=== PATIENT | female | born 1945 | race Caucasian/White ===

== ENCOUNTER 2017-06-29 20:44 | Emergency (ER) | payer MEDICAID, MEDICARE ==
[~2017-06-29] VITALS: Ht 165.1 cm; Wt 80.0 kg
[~2017-06-29 20:44] MED LIST changes: -benadryl PO
[2017-06-29 20:47] VITALS: BP 145/67; PULSE 83; RESP 18; TEMP 99.1; O2SAT 96
[2017-06-29] MEDS ORDERED: benadryl PO (20:57)
[2017-06-29 21:19] VITALS: BP 145/65; PULSE 71; RESP 18; TEMP 98.7; O2SAT 95
--- NOTE | 2017-06-29 21:33 | PD ---
HPI Chief Complaint: Abnormal Results Time Seen by Provider: 21:13 Travel History International Travel<30 days: No Contact w/Intl Traveler<30days: No Traveled to known affect area: No History of Present Illness HPI 72-year-old female with PMH of bipolar, hiatal hernia s/p failed Kiersten fundoplication, chronic back pain presents to the ED for evaluation of abnormal results. The patient states that she was scheduled to have a redo of her Kiersten today. She had preop testing and was told that the surgery was canceled because she needed cardiac clearance and had a UTI that needed to be treated. On presentation she denies chest pain, palpitations. She endorses chronic epigastric pain with intermittent nausea and vomiting and nonproductive cough for "months" which she states are symptoms of her hiatal hernia. She endorses history of chronic UTI. She endorses dysuria but denies urinary urgency, hematuria, fever, chills. She states that she just finished a 14 day course of Bactrim. She treated at home tonight with a dose of pyridium. She states that "they always gave me a shot of Rocephin in the past which worked great." She is followed by Dr. Calderon. [facility] Past Medical History Arthritis: Yes Asthma: No Autoimmune Disease: Yes (RHEUMATOID ARTHRITIS) Blood Disorders: No Bipolar Disorder: Yes Anxiety: Yes Depression: Yes Heart Rhythm Problems: Yes (HX OF CARDIAC ARRHYTHMIA) Cancer: Yes (skin ca) Cardiovascular Problems: Yes (ht murmur, pt states she has a bbb) High Cholesterol: No Chemotherapy: No Chest Pain: No Congestive Heart Failure: No COPD: No Cerebrovascular Accident: No Coronary Artery Disease: No Diabetes: No Diminished Hearing: No Endocrine: No Fibromyalgia: Yes Gastrointestinal Disorders: Yes (RECTOCELE REPAIR) GERD: No Glaucoma: No Genitourinary: Yes (RECURRENT UTI'S) Headaches: Yes (pt reports having frequent headaches) Hepatitis: Yes (hep c, was tx, pt reports she has been clear since 2016) Hiatal Hernia: Yes Hypertension: No Immune Disorder: Yes (ra, fibromyalgia) Kidney Stones: Yes (LITHOTRIPSY) Musculoskeletal: Yes (arthritis) Neurologic: Yes (neuropathy in feet and hands) Psychiatric: Yes Reproductive: No Migraines: No Myocardial Infarction: No Pancreatitis: No Radiation Therapy: No Renal Failure: No Schizophrenia: Yes (BIPOLAR D/O) Seizures: No Sickle Cell Disease: No Sleep Apnea: No Thyroid Disease: Yes (hypothyroid) Ulcer: No ?: Not Menopausal: Yes : 2 Para: 1 Miscarriage: 0 : 1 Ovarian Cysts: No Tubal Ligation: Yes Past Surgical History Abdominal Surgery: Yes (previous hernia repair, appy,liver biposy) AICD: No Appendectomy: Yes Arteriovenous Shunt: No Body Medical Devices: r/l wirst, spinal cord stimulator, hardware in back Cardiac Surgery: No Cholecystectomy: No Coronary Artery Bypass Graft: No Coronary Stent: No Ear Surgery: No Endocrine Surgery: No Eye Surgery: Yes (cataracts) Genitourinary Surgery: Yes (BLADDER SUSPENSION) Gynecologic Surgery: Yes (partial hysterectomy) Hysterectomy: Yes (partial) Insulin Pump: No Joint Replacement: Yes (r/l hip) Neurologic Surgery: Yes (level 21-s5 with ne and fusion, r/l plates and screws ) Oral Surgery: No Pacemaker: No Thoracic Surgery: No Tonsillectomy: No Tympanostomy Tube: No Other Surgery: Yes (RECTOCELE REPAIR - 1996, PARAESPHAGEAL REPAIR, LEFT WRIST) Social History Alcohol Use: No Tobacco Use: No Substance Use: No Allergies-Medications (Allergen,Severity, Reaction): Coded Allergies: Interferons (Unverified Allergy, Severe, 06/29/17) alendronate sodium (Unverified Allergy, Severe, 06/29/17) aripiprazole (Unverified Allergy, Severe, 06/29/17) atropine (Unverified Allergy, Severe, 06/29/17) azithromycin (Unverified Allergy, Severe, 06/29/17) benzoic acid (Unverified Allergy, Severe, 06/29/17) celecoxib (Unverified Allergy, Severe, 06/29/17) ciprofloxacin (Unverified Allergy, Severe, 06/29/17) codeine (Unverified Allergy, Severe, 06/29/17) dexamethasone (Unverified Allergy, Severe, 06/29/17) diatrizoate meglumine (Unverified Allergy, Severe, 06/29/17) famotidine (Unverified Allergy, Severe, 06/29/17) gadobenic acid (Unverified Allergy, Severe, 06/29/17) gadodiamide (Unverified Allergy, Severe, 06/29/17) gadoteridol (Unverified Allergy, Severe, 06/29/17) hyoscyamine (Unverified Allergy, Severe, 06/29/17) iodixanol (Unverified Allergy, Severe, 06/29/17) iohexol (Unverified Allergy, Severe, 06/29/17) lamotrigine (Unverified Allergy, Severe, 06/29/17) lansoprazole (Unverified Allergy, Severe, 06/29/17) levofloxacin (Unverified Allergy, Severe, 06/29/17) metaxalone (Unverified Allergy, Severe, 06/29/17) methenamine (Unverified Allergy, Severe, 06/29/17) methylene blue (Unverified Allergy, Severe, 06/29/17) metronidazole (Unverified Allergy, Severe, 06/29/17) nabumetone (Unverified Allergy, Severe, 06/29/17) nitrofurantoin (Unverified Allergy, Severe, 06/29/17) ofloxacin (Unverified Allergy, Severe, 06/29/17) omeprazole (Unverified Allergy, Severe, 06/29/17) oxybutynin (Unverified Allergy, Severe, 06/29/17) pantoprazole (Unverified Allergy, Severe, 06/29/17) penicillin G (Unverified Allergy, Severe, 06/29/17) prednisone (Unverified Allergy, Severe, 06/29/17) raloxifene (Unverified Allergy, Severe, 06/29/17) risedronate sodium (Unverified Allergy, Severe, 06/29/17) salicylates (Unverified Allergy, Severe, 06/29/17) sulfamethoxazole (Unverified Allergy, Severe, 06/29/17) triamcinolone (Unverified Allergy, Severe, 06/29/17) trimethoprim (Unverified Allergy, Severe, 06/29/17) valacyclovir (Unverified Allergy, Severe, 06/29/17) vancomycin (Unverified Allergy, Severe, 06/29/17) ziprasidone (Unverified Allergy, Severe, 06/29/17) acetaminophen (Unverified Adverse Reaction, Severe, HAS LIVER FAILURE, ) oxycodone (Verified Adverse Reaction, Unknown, 06/29/17) pt refusing meds with this, previous problem with addiction Uncoded Allergies: ANTIBIOTIC (Allergy, Severe, CAN TAKE KEFLEX CEFTIN ROCEPHIN, 06/18/04) ARTHROTEC (Allergy, Severe, 06/18/04) CATS (Allergy, Severe, 06/18/04) CIGARETTE SMOKE (Allergy, Severe, 06/18/04) DOGS (Allergy, Severe, 06/18/04) EXHAUST FUMES (Allergy, Severe, 06/18/04) GRASS (Allergy, Severe, 06/18/04) LEVBID (Allergy, Severe, 06/18/04) MOLDS (Allergy, Severe, 06/18/04) NEXIUM (Allergy, Severe, 06/18/04) PERFUME (Allergy, Severe, 06/18/04) PESTICIDES (Allergy, Severe, 06/18/04) TREES (Allergy, Severe, 06/18/04) WEEDS (Allergy, Severe, 06/18/04) MDRO (Adverse Reaction, Unknown, 06/29/17) ID REPORTS PREVIOUS MRSA, BLADDER Reported Meds & Prescriptions Reported Meds & Active Scripts Active Reported [benadryl] 12.5 Mg PO HS Klonopin (Clonazepam) 0.5 Mg Tab 0.25 Mg PO BID Citalopram (Citalopram Hydrobromide) 40 Mg Tab 40 Mg PO DAILY Review of Systems Except as stated in HPI: all other systems reviewed are Neg Physical Exam Narrative GENERAL: Well-nourished, well-developed white female no acute distress. SKIN: Focused skin assessment warm/dry. HEAD: Normocephalic. EYES: No scleral icterus. No injection or drainage. NECK: Supple, trachea midline. No JVD or lymphadenopathy. CARDIOVASCULAR: Regular rate and rhythm without murmurs, gallops, or rubs. RESPIRATORY: Breath sounds clear and equal bilaterally. No accessory muscle use. GASTROINTESTINAL: Abdomen soft, nondistended. Mild epigastric tenderness. No suprapubic tenderness. Active bowel sounds. MUSCULOSKELETAL: No cyanosis, or edema. BACK: Nontender without obvious deformity. No CVA tenderness. Data Data Last Documented VS Vital Signs Date Time Temp Pulse Resp B/P (MAP) Pulse Ox O2 Delivery O2 Flow Rate FiO2 06/29/17 21:19 98.7 71 18 145/65 (91) 95 Room Air Orders Orders Ed Discharge Order (06/29/17 21:41) Ceftriaxone Inj (Rocephin Inj) (06/29/17 22:00) [facility] Medical Decision Making Medical Screen Exam Complete: Yes Emergency Medical Condition: Yes Differential Diagnosis UTI versus pyelonephritis versus hiatal hernia versus other Narrative Course 72-year-old female with PMH of bipolar, hiatal hernia s/p failed Kiersten fundoplication, chronic back pain presents to the ED for evaluation after preop testing revealed a UTI. She endorses chronic epigastric pain with intermittent nausea and vomiting and nonproductive cough for "months" which she states are symptoms of her hiatal hernia. She endorses history of chronic UTI. She endorses dysuria but denies urinary urgency, hematuria, fever, chills. She states that she just finished a 14 day course of Bactrim. She treated at home tonight with a dose of pyridium. She request Rocephin. She is followed by Dr. Calderon. She states that she was also told that she'll need cardiac clearance which delayed her surgery today. Vitals reviewed. Patient afebrile on presentation. I reviewed the lab work from today which reveals hazy, nitrite positive UA with 11 wbc's. EKG rate 62, sinus rhythm with borderline LAD, RBBB , no acute ST changes. Will treat with a gram of Rocephin IM. Patient stable for follow-up with her PCP and vascular physician as directed by her surgeon today. She is agreeable with this care plan. She is stable and discharged home. Diagnosis Primary Impression: Cystitis Referrals: Primary Care Physician Patient Instructions: General Instructions, Urinary Tract Infection in Women ( ED) Additional Instructions: Rest, hydrate. Return to normal, gentle activity as tolerated. We will call you if cultures warrant any other treatment. Follow-up with your primary care provider and vascular physician as instructed by your surgeon's office today. Return to the ED for any urgent emergent medical condition. Disposition: 01 DISCHARGE HOME Condition: Stable Lexy Alvarez Jun 29, 2017 21:33
[2017-06-29] MEDS ORDERED: cefTRIAXone 250 MG VIAL IM ONE (22:00)
[2017-06-29] MEDS ORDERED: LIDOCAINE HCL 1% 50 ML VIAL XX ONE (22:15)
== END 2017-06-29 22:20 | disposition home or self-care (01) ==
LOC: NEPC 20:44
DX: N30.90 Cystitis, unspecified without hematuria (principal); R10.13 Epigastric pain; R11.2 Nausea with vomiting, unspecified; R05 Cough; F31.9 Bipolar disorder, unspecified; M06.9 Rheumatoid arthritis, unspecified; F41.9 Anxiety disorder, unspecified; M79.7 Fibromyalgia; E03.9 Hypothyroidism, unspecified
CPT/HCPCS: 99284; J0696

== ENCOUNTER → 2017-06-29 | Outpatient (CLI) | payer MEDICARE, MEDICAID ==
[~2017-06-29] MED LIST: ACYC30T TOP; CELE20TA PO; CITA40 PO; CITA40TA4 PO; CLON.5 PO; REST0.05 EACH EYE; benadryl PO
[2017-06-29 11:37] LABS: AUTOMATED NEUTROPHIL # 3.1 TH/MM3 (1.8-7.7); BASOPHIL % 0.7 % (0.0-2.0); EOSINOPHIL # 0.1 TH/MM3 (0-0.4); EOSINOPHIL % 1.3 % (0.0-4.0); HEMATOCRIT 37.3 % (35.0-46.0); HEMO FLAGS DIFF FINAL; LYMPH % 27.1 % (9.0-44.0); LYMPHOCYTE # 1.3 TH/MM3 (1.0-4.8); MEAN CELL VOLUME 87.7 FL (80.0-100.0); MEAN CORPUSCULAR HEMOGLOBIN 29.8 PG (27.0-34.0); MONO % 6.6 % (0.0-8.0); NEUT % 64.3 % (16.0-70.0); PLATELET COUNT 180 TH/MM3 (150-450); RED BLOOD COUNT 4.25 MIL/MM3 (4.00-5.30); RED CELL DISTRIBUTION WIDTH 13.2 % (11.6-17.2); WHITE BLOOD COUNT 4.8 TH/MM3 (4.0-11.0)
[2017-06-29 12:08] LABS: BICARBONATE 23.8 MEQ/L (21.0-32.0); POTASSIUM 4.1 MEQ/L (3.5-5.1)
[2017-06-29 12:15] LABS: BACTERIA, URINE MOD /hpf; BLOOD, URINE NEG (NEG); COMMENT (UR) CULTURE INDICATED; CULTURE IF INDICATED CULTURE INDICATED; GLUCOSE,URINE NEG (NEG); KETONE, URINE NEG (NEG); MUCUS URINE FEW /lpf (OCC); NITRITE,URINE POS (NEG); SQUAMOUS EPITHELIAL CELL URINE <1 /hpf (0-5); URINE COLOR YELLOW (YELLW/STRAW)
--- NOTE | 2017-06-30 11:00 | EKG ---
Date Performed: 06/29/2017 Time Performed: 11:01:04 PTAGE: 72 years EKG: Sinus rhythm WITH SHORT AR INTERVAL BORDERLINE LEFT AXIS DEVIATION RIGHT BUNDLE BRANCH BLOCK ABNORMAL ECG NO PREVIOUS TRACING DOCTOR: Krishan Obrien Interpretating Date/Time 06/30/2017 10:59:42
== END ==
LOC: CPRE 10:28
PROVIDERS: ATTEND Surgery Trauma Surgery
DX: Z01.810 Encounter for preprocedural cardiovascular examination (principal); Z01.812 Encounter for preprocedural laboratory examination; K44.9 Diaphragmatic hernia without obstruction or gangrene; R94.31 Abnormal electrocardiogram [ECG] [EKG]; R82.99 Other abnormal findings in urine; B96.20 Unspecified Escherichia coli [E. coli] as the cause of diseases classified elsewhere
CPT/HCPCS: 36415; 80048; 81001; 85025; 87077; 87086; 87186; 93005

== ENCOUNTER 2017-08-03 11:26 | Inpatient (IN) | payer MEDICARE, MEDICAID ==
[~2017-08-03] VITALS: Ht 163.8 cm; Wt 79.0 kg
[~2017-08-03 11:26] MED LIST changes: -ACYC30T TOP; -CELE20TA PO; -CITA40 PO; -REST0.05 EACH EYE; +benadryl PO
[2017-08-03] MEDS ORDERED: LIDOCAINE HCL 1% PF 5 ML SYRINGE OTHER ONE (12:00)
[2017-08-03] MEDS ORDERED: PROPOFOL 200 MG/20 ML AMP IV ONE (12:00)
[2017-08-03] MEDS ORDERED: GLYCOPYRROLATE 1 MG/5 ML SYRINGE IV PUSH ONE (12:00)
[2017-08-03] MEDS ORDERED: ONDANSETRON HCL 4 MG/2 ML VIAL IV ONE (12:00)
[2017-08-03] MEDS ORDERED: NEOSTIGMINE 5 MG/5 ML SYRINGE IV PUSH ONE (12:00)
[2017-08-03] MEDS ORDERED: ROCURONIUM INJ 50 MG/5 ML SYRINGE IV PUSH ONE (12:00)
[2017-08-03] MEDS ORDERED: ePHEDrine/NS 25 MG/5 ML SYRINGE IV ONE (12:00)
[2017-08-03] MEDS ORDERED: LACTATED RINGER'S 1000 ML INJ 1,000 ML IV ONE (12:00)
[2017-08-03] MEDS ORDERED: LABETALOL HCL 100 MG/20 ML VIAL IV ONE (12:00)
[2017-08-03] MEDS ORDERED: BUPIVACAINE/EPINEPHRINE 0.25% PF 30 ML VIAL ONE (13:04)
[2017-08-03] MEDS ORDERED: METOPROLOL TARTRATE 25 MG TAB PO PRN (13:15)
[2017-08-03] MEDS ORDERED: LACTATED RINGER'S 1000 ML IV PRN (13:15)
[2017-08-03] MEDS ORDERED: INSULIN HUMAN REGULAR 1,000 UNITS/10 ML VIAL SQ PRN (13:15)
[2017-08-03] MEDS ORDERED: SODIUM CHLORID 0.9% 500 ML IV PRN (13:15)
[2017-08-03 13:16] LABS: AUTOMATED NEUTROPHIL # 3.2 TH/MM3 (1.8-7.7); BASOPHIL % 0.6 % (0.0-2.0); EOSINOPHIL # 0.1 TH/MM3 (0-0.4); EOSINOPHIL % 1.1 % (0.0-4.0); HEMATOCRIT 36.8 % (35.0-46.0); HEMOGLOBIN 12.8 GM/DL (11.6-15.3); LYMPH % 33.3 % (9.0-44.0); LYMPHOCYTE # 1.8 TH/MM3 (1.0-4.8); MEAN CELL VOLUME 87.4 FL (80.0-100.0); MEAN CORPUSCULAR HEMOGLOBIN 30.4 PG (27.0-34.0); MEAN CORPUSCULAR HGB CONC 34.7 % (32.0-36.0); MEAN PLATELET VOLUME 8.4 FL (7.0-11.0); MONO % 7.4 % (0.0-8.0); MONOCYTE # 0.4 TH/MM3 (0-0.9); NEUT % 57.6 % (16.0-70.0); PLATELET COUNT 178 TH/MM3 (150-450); RED BLOOD COUNT 4.21 MIL/MM3 (4.00-5.30); WHITE BLOOD COUNT 5.5 TH/MM3 (4.0-11.0)
[2017-08-03] MEDS ORDERED: ceFAZolin 2 GM PREMIX 50 ML IV SCH (13:30)
[2017-08-03] MEDS ORDERED: DO NOT ADM ANY ANTICOAGULANT DRUGS PRN (15:50)
--- NOTE | 2017-08-03 15:55 | PD.OP ---
Operative Report Date of Surgery: Aug 03, 2017 Preoperative Diagnosis: Recurrent Hiatal hernia, GERD Postoperative Diagnosis: same Procedure: Lap repair recurrent hiatal hernia with Walcott BIO A mesh and redo Kiersten fundoplication Repair gastrotomy. Anesthesia: general Surgeon: Kody Crisostomo Master Motorcycle Technician(s): Janes Pelayo Operation and Findings: scar c/w redo surgery. Gastrotomy in fundoplication wrap primary closed and covered by new wrap. Full fundoplication over 48 turkmen bougie. U shaped Walcott BIO A mesh placed to reinforce primary closure of diaphragmatic crura. EBL 25 ml. Kody Crisostomo MD Aug 03, 2017 15:55
[2017-08-03] MEDS ORDERED: ENOXAPARIN SODIUM 30 MG/0.3 ML SYRINGE SQ SCH (16:00)
[2017-08-03] MEDS ORDERED: SODIUM CHLORIDE 0.9% FLUSH 10 ML FLUSH IV FLUSH PRN (16:00)
[2017-08-03] MEDS ORDERED: ONDANSETRON HCL 4 MG/2 ML VIAL IV PUSH PRN (16:00)
[2017-08-03] MEDS ORDERED: Post-op Orders (for Pharmacy) XX ONE (16:00)
[2017-08-03] MEDS ORDERED: *MEPERIDINE 25 MG INJ VIAL PERIprocedural Use ONLY ONE (16:01)
[2017-08-03] MEDS: LACTATED RINGER'S 1000 ML INJ 1,000 ML IV SCH (16:20)
[2017-08-03] MEDS ORDERED: *morphine SULFATE 8 MG/ML PERIprocedure ONLY ONE (16:23)
--- NOTE | 2017-08-03 17:25 | MP ---
cc: KERRI LOVELL M.D., MARK M.D. DATE OF SURGERY: 08/03/2017 PREOPERATIVE DIAGNOSIS Recurrent hiatal hernia, recurrent gastroesophageal reflux disease, history of prior laparoscopic Kiersten fundoplication in 2000. POSTOPERATIVE DIAGNOSES Recurrent hiatal hernia, recurrent gastroesophageal reflux disease, history of prior laparoscopic Kiersten fundoplication in 2000. Incidental gastrotomy. PROCEDURE Laparoscopic repair recurrent hiatal hernia with GORE BIO-A mesh and redo Kiersten fundoplication with repair of gastrotomy. SURGEON Dr. Kerri Lovell MUSIC INSTRUCTOR SURGEON Dr. Janes Pelayo ANESTHESIA General INDICATIONS This is a pleasant 72-year-old woman who in 2000 underwent laparoscopic Kiersten fundoplication by Dr. Alegria. She had excellent response of her reflux disease until about 2007. She developed recurrent signs and symptoms of hiatal hernia and gastroesophageal reflux disease and was referred for surgical treatment by Dr. Escalera. She was offered referral to [facility] for second opinion, surgical consultation, by declined the opportunity to be seen by a more experienced redo fundoplication surgeon. INTRAOPERATIVE FINDINGS Small to moderate size hiatal hernia with the top of stomach and fat in the mediastinum. Small gastrotomy occurred on the wrap of the patient's right side of the esophagus which was primarily repaired and imbricated in the fundoplication. ESTIMATED BLOOD LOSS 25 mL Fundoplication performed over 48-Egyptian bougie. DESCRIPTION OF PROCEDURE IN DETAIL The patient was identified as Russell Hernandez, taken to the operating room, placed in supine position. Sequential compression devices were placed on bilateral lower extremities. Following induction of adequate general endotracheal anesthesia, the patient's abdomen was prepped and draped in the usual sterile fashion with Chloraprep. A time-out procedure was performed. Following completion time-out procedure to everyone's satisfaction within the room, Marcaine local anesthetic was injected at each incision site, 6-8 cm above the umbilicus, a small vertical incision was made with scalpel and dissection continued posteriorly to the level of the midline fascia. This was incised vertically with a scalpel and entering the peritoneal cavity facilitated with the surgeon's finger. The [employer] Balloon Warren trocar was placed in the peritoneal cavity. Its balloon inflated to insufflation until a level of 15 mmHg ensued. The patient was placed in a steep reverse Trendelenburg position and four upper abdominal 5 mm trocars were placed in the peritoneal cavity under direct laparoscopic view after incision of the skin with a scalpel. The liver was noted to have fatty infiltration and chronic disease type changes. The laparoscopic Beena Flex liver retractor was placed beneath the left lateral lobe of the liver retracting it anteriorly and was held in position with the robot arm. Scar tissue was evident and scar was taken down from fatty tissue and wrapped in the stomach and esophagus. Carefully using the harmonic scalpel, blunt dissection and suction, the herniated stomach and fatty tissue was relieved from the mediastinum. The esophagus had appropriate length. The GE junction was identified and retracted inferiorly with a Beena Flex kemp's hook retractor. The previous fundoplication was loose and taken down. In doing so it was noted there was a gastrotomy on the right side of the wrap. This was approximated with four interrupted 0 Ethibond sutures using the suture logging assistant device. It appeared to have good blood supply. There was no ischemia. Sequential bougie placement was then performed using 36, 40, 44 and 48 Egyptian bougie. A 48 Egyptian bougie was passed without difficulty and left in position. A new 360 degree fundoplication was then performed using 0 Ethibond sutures, full thickness stomach, partial thickness anterior wall of the esophagus, full thickness stomach beyond the previous gastrotomy closure on the right side of the fundoplication wrap. This imbricated the previous closure. The bougie was then removed. The diaphragmatic crura were then approximated with two interrupted 0 Ethibond sutures. A piece of GORE BIO-A mesh, U-shaped, which had been moistened in saline was then customized in size and shape, and placed in a reverse C position around the esophagus, reinforcing the diaphragm repair. Two 0 Ethibond sutures were used to hold the mesh in position at the 6 o'clock and 10 o'clock positions. Evicel was then used. Fibrin sealant was then used to further adhere the mesh and to cover the fundoplication. Photographs were taken of the completed repair. Due to the gastrotomy and the redo procedure, a 10 Egyptian fluted drain was placed through the right inferolateral 5 millimeter trocar into the subhepatic space overlying the area of the surgery in the subdiaphragmatic position. The Beena Flex liver retractor was removed. The drain was sutured at the level of the skin with a 3-0 nylon drain stitch. Trocars were removed under direct visualization. The abdomen was actively desufflated through the supraumbilical port which was then removed. The fascial incision was closed with multiple interrupted 0 Vicryl sutures. Port site skin incisions were approximated with 4-0 Monocryl subcuticular sutures, and dressings were applied with Mastisol half inch brown Steri-Strips. A dry dressing was placed at the drain exit site. The patient tolerated the procedure well without apparent complication. Sponge, needle and instrument counts were correct at the end of case. MD MITCHEL Harden/LILIAN /3:37 PM /4:44 PM
[2017-08-03 17:34] VITALS: BP 111/74; PULSE 88; RESP 17; TEMP 96.8; O2SAT 98
[2017-08-03] MEDS: HYDROmorphone HCL 2 MG TAB PO PRN ×2 (18:21→22:09)
[2017-08-03] MEDS ORDERED: LORazepam 2 MG/ML VIAL IV PUSH PRN (19:15)
[2017-08-03] MEDS ORDERED: PILL SPLITTER OTHER PRN (19:30)
[2017-08-03 20:00] VITALS: BP 137/70; PULSE 112; RESP 20; TEMP 97.8; O2SAT 97
[2017-08-03 20:18] VITALS: O2SAT 93
[2017-08-03] MEDS: SODIUM CHLORIDE 0.9% FLUSH 10 ML FLUSH IV FLUSH SCH (22:10)
[2017-08-03] MEDS: diphenhydrAMINE HCL ELIXIR 12.5 MG/5 ML CUP PO SCH (23:56)
[2017-08-04] VITALS (8 sets, daily range): BP systolic 120–161; BP diastolic 58–71; PULSE 82–90; RESP 16–24; TEMP 97.4–101.3; O2SAT 91–96
[2017-08-04] MEDS: clonazePAM 0.5 MG TAB PO SCH ×3 (00:06→22:11)
[2017-08-04] MEDS: LACTATED RINGER'S 1000 ML INJ 1,000 ML IV SCH ×2 (04:16→16:04)
[2017-08-04] MEDS: HYDROmorphone HCL 2 MG TAB PO PRN ×4 (04:17→19:42)
[2017-08-04] MEDS ORDERED: RESP: ALBUTEROL 2.5 MG/3 ML NEB (PRN) INH (06:00)
[2017-08-04] MEDS ORDERED: NAPROXEN 250 MG TAB PO SCH (06:30)
--- NOTE | 2017-08-04 06:44 | RADRPT ---
EXAM DATE/TIME: 08/04/2017 05:44 [facility] COMPARISON: CHEST PA & LAT, October 09, 2009, 12:49. INDICATIONS : Post operative fever. MEDICAL HISTORY : Hiatal hernia. SURGICAL HISTORY : Hernia repair. ENCOUNTER: Initial ACUITY: 1 day PAIN SCORE: Non-responsive. LOCATION: Bilateral chest FINDINGS: Mild right lung base atelectasis and/or infiltrate is seen anteromedially. There is also minimal atel ectasis in the left midlung. Heart and mediastinum are unremarkable for technique. CONCLUSION: Mild right lung base atelectasis and/or infiltrate is seen anteromedially a mild left lung base atele ctasis. Sara Russell MD on August 04, 2017 at 6:42 Board Certified Radiologist. This report was verified electronically.
--- NOTE | 2017-08-04 07:50 | HHI.PR ---
Subjective Subjective Notes feels better, less pain. Had some nausea with popsicle, is swallowing water fine. Tolerated albuterol nebulizer, breathing more comfortably. Objective Vitals/I&O Vital Signs Date Time Temp Pulse Resp B/P (MAP) Pulse Ox O2 Delivery O2 Flow Rate FiO2 08/04/17 07:28 95 Nasal Cannula 2.00 08/04/17 05:11 82 20 127/64 (85) 08/04/17 05:02 101.3 Labs Laboratory Tests Test 08/03/17 12:50 White Blood Count 5.5 Red Blood Count 4.21 Hemoglobin 12.8 Hematocrit 36.8 Mean Corpuscular Volume 87.4 Mean Corpuscular Hemoglobin 30.4 Mean Corpuscular Hemoglobin Concent 34.7 Red Cell Distribution Width 13.0 Platelet Count 178 Mean Platelet Volume 8.4 Neutrophils (%) (Auto) 57.6 Lymphocytes (%) (Auto) 33.3 Monocytes (%) (Auto) 7.4 Eosinophils (%) (Auto) 1.1 Basophils (%) (Auto) 0.6 Neutrophils # (Auto) 3.2 Lymphocytes # (Auto) 1.8 Monocytes # (Auto) 0.4 Eosinophils # (Auto) 0.1 Basophils # (Auto) 0.0 CBC Comment DIFF FINAL Differential Comment Cardiovascular: Regular Lungs: Clear Abdomen: Non-distended, Other (incision sites clean and dry, no erythema. Drain with minimal serosanguinous drainage.), Post-op tenderness Extremities: No edema, Perfused A/P Assessment and Plan POD 1 lap repair recurrent hiatal hernia, redo ashli, repair gastrotomy in R side of wrap. Multiple allergies, postop pain, cramping. No evidence of leak on exam or in drain. Low grade fever, likely related to atelectasis. Will get gastrograffin swallow this morning to evaluate for leak. Continue OOB, deep breathe, use IS. Kody Crisostomo MD Aug 04, 2017 07:50
[2017-08-04] MEDS: SODIUM CHLORIDE 0.9% FLUSH 10 ML FLUSH IV FLUSH SCH ×2 (08:17→19:40)
[2017-08-04] MEDS: CITALOPRAM HYDROBROMIDE 40 MG TAB PO SCH (08:17)
[2017-08-04] MEDS ORDERED: NAPROXEN 375 MG TAB PO PRN (09:00)
--- NOTE | 2017-08-04 15:11 | RADRPT ---
EXAM DATE/TIME: 08/04/2017 14:44 [facility] COMPARISON: No previous studies available for comparison. INDICATIONS : Post op repair recurrent hiatal hernia / redo ashli. FLUORO TIME: 1.5 minutes IMAGE COUNT: ? CONTRAST: 1. MEDICAL HISTORY : Hiatal hernia. SURGICAL HISTORY : Hiatal hernia. ENCOUNTER: Subsequent ACUITY: 2 days PAIN SCORE: 0/10 LOCATION: Esophagus. FINDINGS: Focused evaluation of the distal esophagus and gastroesophageal junction were performed. Post surgical changes following fundoplication are noted. There is no evidence of leakage, significan t residual hiatal hernia or mucosal abnormality. A narrow patent channel is identified. CONCLUSION: Satisfactory post operative appearance of the gastroesophageal junction following fundoplication. No evidence of residual hiatal hernia, leakage or obstruction. Eliseo Wright MD on August 04, 2017 at 15:06 Board Certified Radiologist. This report was verified electronically.
[2017-08-04] MEDS: ENOXAPARIN SODIUM 30 MG/0.3 ML SYRINGE SQ SCH (15:18)
[2017-08-04] MEDS: diphenhydrAMINE HCL ELIXIR 12.5 MG/5 ML CUP PO SCH (22:09)
[2017-08-05] VITALS: BP 112/58; PULSE 86; RESP 22; TEMP 99; O2SAT 93
[2017-08-05] MEDS: HYDROmorphone HCL 2 MG TAB PO PRN ×5 (00:26→20:10)
[2017-08-05 04:00] VITALS: BP_SYST 121; BP_SYST 135; BP_DIAS 60; BP_DIAS 64; PULSE 78; PULSE 82; RESP 20; TEMP 98.5; TEMP 98.8; O2SAT 92; O2SAT 95
[2017-08-05] MEDS: LACTATED RINGER'S 1000 ML INJ 1,000 ML IV SCH ×2 (04:39→16:10)
[2017-08-05 08:00] VITALS: BP 122/60; PULSE 82; RESP 16; TEMP 97.3; O2SAT 96
[2017-08-05] MEDS: clonazePAM 0.5 MG TAB PO SCH ×2 (08:17→20:10)
[2017-08-05] MEDS: SODIUM CHLORIDE 0.9% FLUSH 10 ML FLUSH IV FLUSH SCH ×2 (08:17→20:08)
[2017-08-05] MEDS: CITALOPRAM HYDROBROMIDE 40 MG TAB PO SCH (08:17)
[2017-08-05] MEDS ORDERED: DIATRIZOATE MEGLUM/DIATRIZOATE SOD 120 ML BTL (for RAD DIAG) PO ONE (09:53)
[2017-08-05] MEDS ORDERED: DILA2TAB4 PO (14:08)
[2017-08-05] MEDS: ENOXAPARIN SODIUM 30 MG/0.3 ML SYRINGE SQ SCH (14:47)
[2017-08-05 16:00] VITALS: BP 127/59; PULSE 87; RESP 16; TEMP 98.9; O2SAT 93
[2017-08-05 20:00] VITALS: BP 138/65; PULSE 86; RESP 22; TEMP 100.3; O2SAT 95
[2017-08-05] MEDS: diphenhydrAMINE HCL ELIXIR 12.5 MG/5 ML CUP PO SCH (20:09)
[2017-08-05 23:47] VITALS: BP 134/63; PULSE 83; RESP 20; TEMP 98.8; O2SAT 95
[2017-08-06] MEDS: HYDROmorphone HCL 2 MG TAB PO PRN ×2 (00:37→05:37)
[2017-08-06] MEDS: LACTATED RINGER'S 1000 ML INJ 1,000 ML IV SCH (03:49)
[2017-08-06 08:00] VITALS: BP 121/67; PULSE 76; RESP 17; TEMP 98.2; O2SAT 98
[2017-08-06] MEDS: CITALOPRAM HYDROBROMIDE 40 MG TAB PO SCH (08:57)
[2017-08-06] MEDS: SODIUM CHLORIDE 0.9% FLUSH 10 ML FLUSH IV FLUSH SCH (08:58)
[2017-08-06] MEDS: clonazePAM 0.5 MG TAB PO SCH (08:58)
[2017-08-06 09:24] LABS: BILIRUBIN, URINE NEG (NEG); BLOOD, URINE NEG (NEG); GLUCOSE,URINE NEG (NEG); KETONE, URINE 10 mg/dL (NEG); MUCUS URINE FEW /lpf (OCC); NITRITE,URINE NEG (NEG); SQUAMOUS EPITHELIAL CELL URINE <1 /hpf (0-5); URINE COLOR YELLOW (YELLW/STRAW); URINE LEUKOCYTE ESTERASE NEG (NEG)
== END 2017-08-06 12:09 | disposition home or self-care (01) | DRG 327 ==
LOC: HSDC 11:26 → HSDI 16:21 → N07A 17:23
PROVIDERS: ADMIT Surgery Trauma Surgery; ATTEND Surgery Trauma Surgery
PROC: 0DV44ZZ Restriction of Esophagogastric Junction, Percutaneous Endoscopic Approach (ICD-10-PCS; 2017-08-03)
PROC: 0DQ64ZZ Repair Stomach, Percutaneous Endoscopic Approach (ICD-10-PCS; 2017-08-03)
PROC: 0BUT4JZ Supplement Diaphragm with Synthetic Substitute, Percutaneous Endoscopic Approach (ICD-10-PCS; principal; 2017-08-03 13:33)
DX: K44.9 Diaphragmatic hernia without obstruction or gangrene (principal); K91.71 Accidental puncture and laceration of a digestive system organ or structure during a digestive system procedure; K76.0 Fatty (change of) liver, not elsewhere classified; J98.11 Atelectasis; E66.9 Obesity, unspecified; Z68.29 Body mass index [BMI] 29.0-29.9, adult; K21.9 Gastro-esophageal reflux disease without esophagitis; E03.9 Hypothyroidism, unspecified; M54.5 Low back pain; B19.20 Unspecified viral hepatitis C without hepatic coma; Z85.828 Personal history of other malignant neoplasm of skin; F41.8 Other specified anxiety disorders
CPT/HCPCS: 71010; 74220; 81001; 85025; 94150; 94664; C1781; J0690; J1650; J2060; J2175; J2270; J2405; J2710; J7120; J7613; Q9963

== ENCOUNTER 2017-11-13 19:20 | Inpatient (IN) | payer MEDICARE, MEDICAID ==
[~2017-11-13] VITALS: Ht 162.6 cm; Wt 77.0 kg
[~2017-11-13 19:20] MED LIST changes: +DILA2TAB4 PO
[2017-11-13] MEDS ORDERED: SODIUM CHLOR 0.9% 1000 ML INJ 1,000 ML IV SCH (19:31)
--- NOTE | 2017-11-13 19:36 | PD ---
HPI Chief Complaint: Abdominal Pain Time Seen by Provider: 19:25 Travel History International Travel<30 days: No Contact w/Intl Traveler<30days: No Traveled to known affect area: No History of Present Illness HPI 72-year-old female here for evaluation of abdominal pain, abdominal hernia, and low back pain. The patient had hiatal hernia repair and revision of Kiersten fundoplication last year by Dr. Crisostomo. She subsequently developed a ventral hernia which she states is usually the size of a golf ball, however it is gradually increasing in size. She has been having constant pain in this area as well as low back pain for the last 4 days. She denies trauma. No vomiting. Last bowel movement was earlier this afternoon. She is scheduled for ventral hernia repair with Dr. Crisostomo on the of this month. She attempted to call their office today, however she was advised to present to the emergency department for evaluation. She reports that she was seen at [facility] 4 days ago for her back pain where she reportedly had a CT scan and was told that there are no acute abnormalities and was discharged home with [place] which she reports does not help her pain. No urinary or bowel incontinence or retention. No motor deficits. 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) Cancer: Yes (skin cancer) Cardiovascular Problems: Yes High Cholesterol: No Chemotherapy: No Chest Pain: No Congestive Heart Failure: No COPD: No Cerebrovascular Accident: No Coronary Artery Disease: No Diabetes: No Diminished Hearing: No Endocrine: Yes Fibromyalgia: Yes Gastrointestinal Disorders: Yes (RECTOCELE REPAIR) GERD: Yes Glaucoma: No Genitourinary: Yes Headaches: Yes (pt reports having frequent headaches) Hepatitis: Yes (hep c, was tx, pt reports she has been clear since 2016) Hiatal Hernia: Yes Hypertension: No Immune Disorder: Yes (ra, fibromyalgia) Kidney Stones: Yes Musculoskeletal: Yes Neurologic: Yes Psychiatric: Yes Reproductive: No Respiratory: Yes Migraines: No Myocardial Infarction: No Pancreatitis: No Radiation Therapy: No Renal Failure: No Schizophrenia: Yes (BIPOLAR D/O) Seizures: No Sickle Cell Disease: No Sleep Apnea: No Thyroid Disease: Yes (hypthroidism ) Ulcer: No Menopausal: Yes : 2 Para: 1 Miscarriage: 0 : 1 Ovarian Cysts: No Tubal Ligation: Yes Past Surgical History Abdominal Surgery: Yes (Hiatal hernia repair 2000) AICD: No Appendectomy: Yes Arteriovenous Shunt: No Body Medical Devices: St Rick. generator in butt Cardiac Surgery: No Cholecystectomy: No Coronary Artery Bypass Graft: No Coronary Stent: No Ear Surgery: No Endocrine Surgery: No Eye Surgery: Yes (Cataracts removed bilateral eyes) Genitourinary Surgery: Yes (Mesh around bladder) Gynecologic Surgery: Yes (Partial hysterectomy/left L ovary) Hysterectomy: Yes (partial) Insulin Pump: No Joint Replacement: Yes (bilateral hip replacements) Neurologic Surgery: Yes (level 21-s5 with ne and fusion, r/l plates and screws ) Oral Surgery: No Pacemaker: No Thoracic Surgery: No Tonsillectomy: No Tympanostomy Tube: No Other Surgery: Yes (RECTOCELE REPAIR - 1996, PARAESPHAGEAL REPAIR, LEFT WRIST) Social History Alcohol Use: No Tobacco Use: No Substance Use: Yes (marijuana) Allergies-Medications (Allergen,Severity, Reaction): Coded Allergies: Interferons (Unverified Allergy, Severe, 11/13/17) alendronate sodium (Unverified Allergy, Severe, 11/13/17) aripiprazole (Unverified Allergy, Severe, 11/13/17) atropine (Unverified Allergy, Severe, 11/13/17) azithromycin (Unverified Allergy, Severe, 11/13/17) benzoic acid (Unverified Allergy, Severe, 11/13/17) celecoxib (Unverified Allergy, Severe, 11/13/17) ciprofloxacin (Unverified Allergy, Severe, 11/13/17) codeine (Unverified Allergy, Severe, 11/13/17) dexamethasone (Unverified Allergy, Severe, 11/13/17) diatrizoate meglumine (Unverified Allergy, Severe, 11/13/17) famotidine (Unverified Allergy, Severe, 11/13/17) gadobenic acid (Unverified Allergy, Severe, 11/13/17) gadodiamide (Unverified Allergy, Severe, 11/13/17) gadoteridol (Unverified Allergy, Severe, 11/13/17) hyoscyamine (Unverified Allergy, Severe, 11/13/17) iodixanol (Unverified Allergy, Severe, 11/13/17) iohexol (Unverified Allergy, Severe, 11/13/17) lamotrigine (Unverified Allergy, Severe, 11/13/17) lansoprazole (Unverified Allergy, Severe, 11/13/17) levofloxacin (Unverified Allergy, Severe, 11/13/17) metaxalone (Unverified Allergy, Severe, 11/13/17) methenamine (Unverified Allergy, Severe, 11/13/17) methylene blue (Unverified Allergy, Severe, 11/13/17) metronidazole (Unverified Allergy, Severe, 11/13/17) nabumetone (Unverified Allergy, Severe, 11/13/17) nitrofurantoin (Unverified Allergy, Severe, 11/13/17) ofloxacin (Unverified Allergy, Severe, 11/13/17) omeprazole (Unverified Allergy, Severe, 11/13/17) oxybutynin (Unverified Allergy, Severe, 11/13/17) pantoprazole (Unverified Allergy, Severe, 11/13/17) penicillin G (Unverified Allergy, Severe, 11/13/17) prednisone (Unverified Allergy, Severe, 11/13/17) raloxifene (Unverified Allergy, Severe, 11/13/17) risedronate sodium (Unverified Allergy, Severe, 11/13/17) salicylates (Unverified Allergy, Severe, 11/13/17) sulfamethoxazole (Unverified Allergy, Severe, 11/13/17) triamcinolone (Unverified Allergy, Severe, 11/13/17) trimethoprim (Unverified Allergy, Severe, 11/13/17) valacyclovir (Unverified Allergy, Severe, 11/13/17) vancomycin (Unverified Allergy, Severe, 11/13/17) ziprasidone (Unverified Allergy, Severe, 11/13/17) acetaminophen (Unverified Adverse Reaction, Severe, HAS LIVER FAILURE, 11/13) oxycodone (Verified Adverse Reaction, Unknown, 11/13/17) pt refusing meds with this, previous problem with addiction Uncoded Allergies: ANTIBIOTIC (Allergy, Severe, CAN TAKE KEFLEX CEFTIN ROCEPHIN, 06/18/04) ARTHROTEC (Allergy, Severe, 06/18/04) CATS (Allergy, Severe, 06/18/04) CIGARETTE SMOKE (Allergy, Severe, 06/18/04) DOGS (Allergy, Severe, 06/18/04) EXHAUST FUMES (Allergy, Severe, 06/18/04) GRASS (Allergy, Severe, 06/18/04) LEVBID (Allergy, Severe, 06/18/04) MOLDS (Allergy, Severe, 06/18/04) NEXIUM (Allergy, Severe, 06/18/04) PERFUME (Allergy, Severe, 06/18/04) PESTICIDES (Allergy, Severe, 06/18/04) TREES (Allergy, Severe, 06/18/04) WEEDS (Allergy, Severe, 06/18/04) Reported Meds & Prescriptions Reported Meds & Active Scripts Active Reported [benadryl] 12.5 Mg PO HS Klonopin (Clonazepam) 0.5 Mg Tab 0.5 Mg PO BID Citalopram (Citalopram Hydrobromide) 40 Mg Tab 30 Mg PO DAILY Review of Systems Except as stated in HPI: all other systems reviewed are Neg Physical Exam Narrative GENERAL: Well-developed, well-nourished, awake, alert, comfortable, no apparent distress. SKIN: Focused skin assessment warm/dry. HEAD: Atraumatic. Normocephalic. EYES: Pupils equal and round. No scleral icterus. No injection or drainage. ENT: Mucous membranes pink and moist. NECK: Trachea midline. No JVD. CARDIOVASCULAR: Regular rate and rhythm. RESPIRATORY: No accessory muscle use. Clear to auscultation. Breath sounds equal bilaterally. GASTROINTESTINAL: Abdomen soft, nondistended. Moderate sized ventral hernia that is easily reducible with moderate tenderness, no peritoneal signs. There is mild right lower quadrant tenderness. MUSCULOSKELETAL: No obvious deformities. No clubbing. No cyanosis. No edema. Mild midline lumbar spine tenderness without step-off. NEUROLOGICAL: Awake and alert. No obvious cranial nerve deficits. Motor grossly within normal limits. Normal speech. No saddle anesthesia. Brisk patellar tendon reflexes bilaterally. Great toe extension present bilaterally. Normal muscle strength in bilateral upper and lower extremities in flexion and extension. PSYCHIATRIC: Appropriate mood and affect; insight and judgment normal. Data Data Last Documented VS Vital Signs Date Time Temp Pulse Resp B/P (MAP) Pulse Ox O2 Delivery O2 Flow Rate FiO2 11/13/17 20:19 14 98 Room Air 11/13/17 19:37 98.9 70 142/67 (92) Orders Orders Complete Blood Count With Diff (11/13/17 19:31) Comprehensive Metabolic Panel (11/13/17 19:31) Lipase (11/13/17 19:31) Lactic Acid (11/13/17 19:31) Prothrombin Time / Inr (Pt) (11/13/17 19:31) Act Partial Throm Time (Ptt) (11/13/17 19:31) Urinalysis - C+S If Indicated (11/13/17 19:31) Iv Access Insert/Monitor (11/13/17 19:31) Ecg Monitoring (11/13/17:31) Oximetry (11/13/17 19:31) Sodium Chlor 0.9% 1000 Ml Inj (Ns 1000 M (11/13/17 19:31) Sodium Chloride 0.9% Flush (Ns Flush) (11/13/17 19:45) Ct Lumb Spine W/O Contrast (11/13/17 ) Morphine Inj (Morphine Inj) (11/13/17 19:45) Ct Abd/Pel W/O Iv Contrast (11/13/17 ) Morphine Inj (Morphine Inj) (11/13/17 21:15) Insert Ng Tube (11/13/17 21:11) Admit Order (Ed Use Only) (11/13/17 21:13) Labs Laboratory Tests Test 11/13/17 19:40 White Blood Count 5.3 TH/MM3 Red Blood Count 4.30 MIL/MM3 Hemoglobin 12.8 GM/DL Hematocrit 36.3 % Mean Corpuscular Volume 84.4 FL Mean Corpuscular Hemoglobin 29.7 PG Mean Corpuscular Hemoglobin Concent 35.2 % Red Cell Distribution Width 12.4 % Platelet Count 149 TH/MM3 Mean Platelet Volume 8.5 FL Neutrophils (%) (Auto) 57.6 % Lymphocytes (%) (Auto) 32.5 % Monocytes (%) (Auto) 7.1 % Eosinophils (%) (Auto) 2.0 % Basophils (%) (Auto) 0.8 % Neutrophils # (Auto) 3.1 TH/MM3 Lymphocytes # (Auto) 1.7 TH/MM3 Monocytes # (Auto) 0.4 TH/MM3 Eosinophils # (Auto) 0.1 TH/MM3 Basophils # (Auto) 0.0 TH/MM3 CBC Comment DIFF FINAL Differential Comment Prothrombin Time 10.6 SEC Prothromb Time International Ratio 1.0 RATIO Activated Partial Thromboplast Time 23.6 SEC Blood Urea Nitrogen 21 MG/DL Creatinine 0.86 MG/DL Random Glucose 143 MG/DL Total Protein 7.7 GM/DL Albumin 4.0 GM/DL Calcium Level 8.6 MG/DL Alkaline Phosphatase 56 U/L Aspartate Amino Transf (AST/SGOT) 19 U/L Alanine Aminotransferase (ALT/SGPT) 24 U/L Total Bilirubin 0.4 MG/DL Sodium Level 138 MEQ/L Potassium Level 3.9 MEQ/L Chloride Level 105 MEQ/L Carbon Dioxide Level 24.5 MEQ/L Anion Gap 9 MEQ/L Estimat Glomerular Filtration Rate 65 ML/MIN Lactic Acid Level 2.3 mmol/L Lipase 161 U/L MDM Medical Decision Making Medical Screen Exam Complete: Yes Emergency Medical Condition: Yes Differential Diagnosis Ventral abdominal hernia: Incarcerated versus strangulated, colitis, diverticulitis, appendicitis, sciatica Narrative Course Vital signs reviewed. CBC: WBC 5.3, hemoglobin 12.8, hematocrit 36.3, platelets 149. CMP is essentially unremarkable. Lactic acid is 2.3. Lipase is 161. CT abdomen pelvis: CONCLUSION: 1. The stomach is quite distended with considerable material in the stomach. The pylorus appears narrowed suggesting a gastric bezoar and pyloric stenosis. Endoscopy would be warranted for further assessment. Malignancy is not excluded. 2. Small ventral hernia with some omental fat herniated through the defect. 3. 3 mm nonobstructing stone in the left kidney.. CT lumbar spine: CONCLUSION: 1. Grade 1 anterior spondylolisthesis of L5 on S1. The patient is status post stabilization procedure. 2. Degenerative changes throughout as described above. 3. Left renal stone. Patient was made aware of all findings. She was given 4 mg of IV morphine initially with improvement in pain, however on reassessment she states that her pain is returning. Her pain is mainly in her abdomen as well as her lower back reading down her right lower extremity. There are no red flags for low back pain. No signs of cord compression on exam. Case discussed with hospitalist Dr. Woodard who will admit the patient to her service for GI evaluation and likely general surgery evaluation. NG tube will be placed. Patient is amenable with this plan. Diagnosis Primary Impression: Gastric outlet obstruction Additional Impressions: Intractable abdominal pain Sciatica Qualified Codes: M54.31 - Sciatica, right side; M54.32 - Sciatica, left side Admitting Information Admitting Physician Requests: Toy Helton MD Nov 13, 2017 19:36
[2017-11-13 19:37] VITALS: BP 142/67; PULSE 70; RESP 16; TEMP 98.9; O2SAT 97
[2017-11-13] MEDS ORDERED: MORPHINE SULFATE 2 MG/ML SYRINGE IV PUSH ONE ×2 (19:45→21:15)
[2017-11-13] MEDS ORDERED: SODIUM CHLORIDE 0.9% FLUSH 10 ML FLUSH IV FLUSH PRN ×2 (19:45→21:30)
[2017-11-13 20:09] LABS: AUTOMATED NEUTROPHIL # 3.1 TH/MM3 (1.8-7.7); BASOPHIL % 0.8 % (0.0-2.0); EOSINOPHIL # 0.1 TH/MM3 (0-0.4); HEMATOCRIT 36.3 % (35.0-46.0); HEMOGLOBIN 12.8 GM/DL (11.6-15.3); LYMPH % 32.5 % (9.0-44.0); LYMPHOCYTE # 1.7 TH/MM3 (1.0-4.8); MEAN CELL VOLUME 84.4 FL (80.0-100.0); MEAN CORPUSCULAR HEMOGLOBIN 29.7 PG (27.0-34.0); MEAN CORPUSCULAR HGB CONC 35.2 % (32.0-36.0); MEAN PLATELET VOLUME 8.5 FL (7.0-11.0); MONO % 7.1 % (0.0-8.0); MONOCYTE # 0.4 TH/MM3 (0-0.9); NEUT % 57.6 % (16.0-70.0); PLATELET COUNT 149 TH/MM3 (150-450); RED CELL DISTRIBUTION WIDTH 12.4 % (11.6-17.2); WHITE BLOOD COUNT 5.3 TH/MM3 (4.0-11.0)
[2017-11-13 20:19] VITALS: RESP 14; O2SAT 98
--- NOTE | 2017-11-13 20:25 | RADRPT ---
EXAM DATE/TIME: 11/13/2017 19:52 [facility] COMPARISON: No previous studies available for comparison. INDICATIONS : Abdomen pain. ORAL CONTRAST: No oral contrast ingested. RADIATION DOSE: 17.31 CTDIvol (mGy) MEDICAL HISTORY : Cardiovascular disease. Hepatitis C. Cirrhosis. SURGICAL HISTORY : Appendectomy. Hysterectomy.Fusion, lumbar.Spinal stimulator ENCOUNTER: Initial ACUITY: 1 day PAIN SCALE: 7/10 LOCATION: Bilateral abdomen TECHNIQUE: Volumetric scanning of the abdomen and pelvis was performed. Using automated exposure control and ad justment of the mA and/or kV according to patient size, radiation dose was kept as low as reasonably achievable to obtain optimal diagnostic quality images. DICOM format image data is available [facility] for review and comparison. FINDINGS: Imaging through the lung bases demonstrate COPD changes. The appearance of the liver, spleen, pancreas and adrenal glands is within normal limits. Note is made of a 2 mm nonobstructing stone in the left kidney. The right kidney is unremarkable in a ppearance. Imaging through the upper abdomen demonstrates considerable undigested food within the stomach. The e xam could suggest possible gastric bezoar. The distal stomach and pylorus appear quite narrowed. This may represent some degree of pyloric stenosis. The visualized loops of small and large bowel in the upper abdomen are unremarkable. There is a small amount of stool diffusely throughout the colon. No free intraperitoneal air seen. No free intraperitoneal fluid is present. Note is made of a small v entral hernia. There is some omental fat herniated into the defect. There is no free fluid within the pelvis. No iliac or inguinal adenopathy is present. There are degenerative and postsurgical changes throughout the spine. CONCLUSION: 1. The stomach is quite distended with considerable material in the stomach. The pylorus appears narr owed suggesting a gastric bezoar and pyloric stenosis. Endoscopy would be warranted for further asses sment. Malignancy is not excluded. 2. Small ventral hernia with some omental fat herniated through the defect. 3. 3 mm nonobstructing stone in the left kidney.. Jamal Hinds MD on November 13, 2017 at 20:18 Board Certified Radiologist. This report was verified electronically.
[2017-11-13 20:35] LABS: PROTHROMBIN TIME - PATIENT 10.6 SEC (9.8-11.6)
[2017-11-13 20:38] LABS: AST (GOT) 19 U/L (15-37); BICARBONATE 24.5 MEQ/L (21.0-32.0); BLOOD UREA NITROGEN 21 MG/DL (7-18); CALCIUM 8.6 MG/DL (8.5-10.1); CHLORIDE 105 MEQ/L (98-107); CREATININE 0.86 MG/DL (0.50-1.00); GLOMERULAR FILTRATION RATE 65 ML/MIN (>89); GLUCOSE,RANDOM 143 MG/DL (74-106); SODIUM (NA) 138 MEQ/L (136-145)
[2017-11-13 20:39] LABS: ALT (GPT) 24 U/L (10-53)
[2017-11-13 20:42] LABS: ALKALINE PHOSPHATASE 56 U/L (45-117); TOTAL BILIRUBIN ADULT 0.4 MG/DL (0.2-1.0); TOTAL PROTEIN 7.7 GM/DL (6.4-8.2)
--- NOTE | 2017-11-13 20:42 | RADRPT ---
EXAM DATE/TIME: 11/13/2017 19:52 [facility] COMPARISON: CT ABDOMEN & PELVIS W/O CONTRAST, November 13, 2017, 19:52. INDICATIONS : Back pain. RADIATION DOSE: ; Reconstructed from previous dataset, no dose MEDICAL HISTORY : Cardiovascular disease. Hepatitis C. Cirrhosis. SURGICAL HISTORY : Appendectomy. Hysterectomy.Fusion, lumbar.Spinal stimulator ENCOUNTER: Initial ACUITY: 1 day PAIN SCALE: 7/10 LOCATION: lumbar TECHNIQUE: Volumetric scanning of the lumbar spine was performed. Multiplanar reconstructions in the sagittal, coronal and oblique axial planes were performed. Using automated exposure control and adjustment of the mA and/or kV according to patient size, radiation dose was kept as low as reasonably achievable t o obtain optimal diagnostic quality images. DICOM format image data is available electronically for review and comparison. FINDINGS: VERTEBRAE: There transpedicular screws through the L4, L5, S1 levels was posterior stabilization connecting rods . There are stabilization devices at the L4-L5 and L5-S1 disc levels. There is mild grade 1 anterior spondylolisthesis of L5 on S1. Lumbar vertebral bodies are otherwise normally aligned. The lumbar cyril tebral bodies are normal height. There is some sclerosis at the inferior aspect of T11 and the super ior aspect of T12 likely related to degenerative change. OTHER: There is a 6 mm stone seen in the left kidney. T11-T12: The disc demonstrates decreased height and a vacuum phenomenon. There is minimal bulging without sign ificant stenosis. T12-L1: The disc demonstrates decreased height and a vacuum phenomenon. There is mild diffuse disc bulge caus ing mild impression on the thecal sac. The neural foramina are patent bilaterally. L1-L2: The disc demonstrates decreased height and a vacuum phenomenon. There is mild diffuse disc bulge caus ing mild impression on the thecal sac. The neural foramina are patent bilaterally. L2-L3: The thecal sac has a normal diameter. There is minimal disc bulge. The neural foramina are patent b ilaterally. L3-L4: The disc demonstrates decreased height and a vacuum phenomenon. There is a right lateral recess and r ight posterior lateral disc protrusion. The neural foramina are patent bilaterally. L4-L5: The thecal sac has a normal diameter. No evidence of disc bulge or protrusion. Again noted is a sta bilization device at the disc level. The neural foramina are patent bilaterally. L5-S1: Again noted is the grade 1 anterior spondylolisthesis. The thecal sac has a normal diameter. No evid ence of disc bulge or protrusion. The neural foramina are patent bilaterally. CONCLUSION: 1. Grade 1 anterior spondylolisthesis of L5 on S1. The patient is status post stabilization procedure . 2. Degenerative changes throughout as described above. 3. Left renal stone. Dillon Mariano MD on November 13, 2017 at 20:26 Board Certified Radiologist. This report was verified electronically.
--- NOTE | 2017-11-13 21:29 | HHI.HP ---
[facility] Service [facility] Primary Care Physician No Primary Care Physician Admission Diagnosis Gastric outlet obstruction, intractable abdominal pain, sciatica Diagnoses: Travel History International Travel<30 Days: No Contact w/Intl Traveler <30 Da: No Past Family Social History Allergies: Coded Allergies: Interferons (Unverified Allergy, Severe, 11/13/17) alendronate sodium (Unverified Allergy, Severe, 11/13/17) aripiprazole (Unverified Allergy, Severe, 11/13/17) atropine (Unverified Allergy, Severe, 11/13/17) azithromycin (Unverified Allergy, Severe, 11/13/17) benzoic acid (Unverified Allergy, Severe, 11/13/17) celecoxib (Unverified Allergy, Severe, 11/13/17) ciprofloxacin (Unverified Allergy, Severe, 11/13/17) codeine (Unverified Allergy, Severe, 11/13/17) dexamethasone (Unverified Allergy, Severe, 11/13/17) diatrizoate meglumine (Unverified Allergy, Severe, 11/13/17) famotidine (Unverified Allergy, Severe, 11/13/17) gadobenic acid (Unverified Allergy, Severe, 11/13/17) gadodiamide (Unverified Allergy, Severe, 11/13/17) gadoteridol (Unverified Allergy, Severe, 11/13/17) hyoscyamine (Unverified Allergy, Severe, 11/13/17) iodixanol (Unverified Allergy, Severe, 11/13/17) iohexol (Unverified Allergy, Severe, 11/13/17) lamotrigine (Unverified Allergy, Severe, 11/13/17) lansoprazole (Unverified Allergy, Severe, 11/13/17) levofloxacin (Unverified Allergy, Severe, 11/13/17) metaxalone (Unverified Allergy, Severe, 11/13/17) methenamine (Unverified Allergy, Severe, 11/13/17) methylene blue (Unverified Allergy, Severe, 11/13/17) metronidazole (Unverified Allergy, Severe, 11/13/17) nabumetone (Unverified Allergy, Severe, 11/13/17) nitrofurantoin (Unverified Allergy, Severe, 11/13/17) ofloxacin (Unverified Allergy, Severe, 11/13/17) omeprazole (Unverified Allergy, Severe, 11/13/17) oxybutynin (Unverified Allergy, Severe, 11/13/17) pantoprazole (Unverified Allergy, Severe, 11/13/17) penicillin G (Unverified Allergy, Severe, 11/13/17) prednisone (Unverified Allergy, Severe, 11/13/17) raloxifene (Unverified Allergy, Severe, 11/13/17) risedronate sodium (Unverified Allergy, Severe, 11/13/17) salicylates (Unverified Allergy, Severe, 11/13/17) sulfamethoxazole (Unverified Allergy, Severe, 11/13/17) triamcinolone (Unverified Allergy, Severe, 11/13/17) trimethoprim (Unverified Allergy, Severe, 11/13/17) valacyclovir (Unverified Allergy, Severe, 11/13/17) vancomycin (Unverified Allergy, Severe, 11/13/17) ziprasidone (Unverified Allergy, Severe, 11/13/17) acetaminophen (Unverified Adverse Reaction, Severe, HAS LIVER FAILURE, 11/13) oxycodone (Verified Adverse Reaction, Unknown, 11/13/17) pt refusing meds with this, previous problem with addiction Uncoded Allergies: ANTIBIOTIC (Allergy, Severe, CAN TAKE KEFLEX CEFTIN ROCEPHIN, 06/18/04) ARTHROTEC (Allergy, Severe, 06/18/04) CATS (Allergy, Severe, 06/18/04) CIGARETTE SMOKE (Allergy, Severe, 06/18/04) DOGS (Allergy, Severe, 06/18/04) EXHAUST FUMES (Allergy, Severe, 06/18/04) GRASS (Allergy, Severe, 06/18/04) LEVBID (Allergy, Severe, 06/18/04) MOLDS (Allergy, Severe, 06/18/04) NEXIUM (Allergy, Severe, 06/18/04) PERFUME (Allergy, Severe, 06/18/04) PESTICIDES (Allergy, Severe, 06/18/04) TREES (Allergy, Severe, 06/18/04) WEEDS (Allergy, Severe, 06/18/04) Physical Exam Vital Signs Vital Signs Date Time Temp Pulse Resp B/P (MAP) Pulse Ox O2 Delivery O2 Flow Rate FiO2 11/13/17 20:19 14 98 Room Air 11/13/17 19:37 98.9 70 16 142/67 (92) 97 Physical Exam GENERAL: This is a well-nourished, well-developed patient, in no apparent distress. SKIN: No rashes, ecchymoses or lesions. Cool and dry. HEAD: Atraumatic. Normocephalic. No temporal or scalp tenderness. EYES: Pupils equal round and reactive. Extraocular motions intact. No scleral icterus. No injection or drainage. ENT: Nose without bleeding, purulent drainage or septal hematoma. Throat without erythema, tonsillar hypertrophy or exudate. Uvula midline. Airway patent. NECK: Trachea midline. No JVD or lymphadenopathy. Supple, nontender, no meningeal signs. CARDIOVASCULAR: Regular rate and rhythm without murmurs, gallops, or rubs. RESPIRATORY: Clear to auscultation. Breath sounds equal bilaterally. No wheezes , rales, or rhonchi. GASTROINTESTINAL: Abdomen soft, non-tender, nondistended. No hepato-splenomegaly , or palpable masses. No guarding. MUSCULOSKELETAL: Extremities without clubbing, cyanosis, or edema. No joint tenderness, effusion, or edema noted. No calf tenderness. Negative Homans sign bilaterally. NEUROLOGICAL: Awake and alert. Cranial nerves II through XII intact. Motor and sensory grossly within normal limits. Five out of 5 muscle strength in all muscle groups. Normal speech. Laboratory Laboratory Tests Test 11/13/17 19:40 White Blood Count 5.3 Red Blood Count 4.30 Hemoglobin 12.8 Hematocrit 36.3 Mean Corpuscular Volume 84.4 Mean Corpuscular Hemoglobin 29.7 Mean Corpuscular Hemoglobin Concent 35.2 Red Cell Distribution Width 12.4 Platelet Count 149 Mean Platelet Volume 8.5 Neutrophils (%) (Auto) 57.6 Lymphocytes (%) (Auto) 32.5 Monocytes (%) (Auto) 7.1 Eosinophils (%) (Auto) 2.0 Basophils (%) (Auto) 0.8 Neutrophils # (Auto) 3.1 Lymphocytes # (Auto) 1.7 Monocytes # (Auto) 0.4 Eosinophils # (Auto) 0.1 Basophils # (Auto) 0.0 CBC Comment DIFF FINAL Differential Comment Prothrombin Time 10.6 Prothromb Time International Ratio 1.0 Activated Partial Thromboplast Time 23.6 Blood Urea Nitrogen 21 Creatinine 0.86 Random Glucose 143 Total Protein 7.7 Albumin 4.0 Calcium Level 8.6 Alkaline Phosphatase 56 Aspartate Amino Transf (AST/SGOT) 19 Alanine Aminotransferase (ALT/SGPT) 24 Total Bilirubin 0.4 Sodium Level 138 Potassium Level 3.9 Chloride Level 105 Carbon Dioxide Level 24.5 Anion Gap 9 Estimat Glomerular Filtration Rate 65 Lactic Acid Level 2.3 Lipase 161 Result Diagram: 11/13/17193911/13/171939 Caprini VTE Risk Assessment Caprini Risk Assessment Model Point Value = 1 Point Value = 2 Point Value = 3 Point Value = 5 Age 41-60 Minor surgery BMI > 25 kg/m2 Swollen legs Varicose veins or History of unexplained or recurrent spontaneous Oral contraceptives or hormone replacement Sepsis (< 1 month) Serious lung disease, including pneumonia (< 1 month) Abnormal pulmonary function Acute myocardial infarction Congestive heart failure (< 1 month) History of inflammatory bowel disease Medical patient at bed rest Age 61-74 Arthroscopic surgery Major open surgery (> 45 min) Laparoscopic surgery (> 45 min) Malignancy Confined to bed (> 72 hours) Immobilizing plaster cast Central venous access Age >= 75 History of VTE Family history of VTE Factor V Leiden Prothrombin [id number] Lupus anticoagulant Anticardiolipin antibodies Elevated serum homocysteine Heparin-induced thrombocytopenia Other congenital or acquired thrombophilia Stroke (< 1 month) Elective arthroplasty Hip, pelvis, or leg fracture Acute spinal cord injury (< 1 month) Prophylaxis Regimen Total Risk Factor Score Risk Level Prophylaxis Regimen 0-1 Low Early ambulation 2 Moderate Order ONE of the following: *Sequential Compression Device (SCD) *Heparin 5000 units SQ BID 3-4 Higher Order ONE of the following medications: *Heparin 5000 units SQ TID *Enoxaparin/Lovenox 40 mg SQ daily (WT < 150 kg, CrCl > 30 mL/min) *Enoxaparin/Lovenox 30 mg SQ daily (WT < 150 kg, CrCl > 10-29 mL/min) *Enoxaparin/Lovenox 30 mg SQ BID (WT < 150 kg, CrCl > 30 mL/min) AND/OR *Sequential Compression Device (SCD) 5 or more Highest Order ONE of the following medications: *Heparin 5000 units SQ TID (Preferred with Epidurals) *Enoxaparin/Lovenox 40 mg SQ daily (WT < 150 kg, CrCl > 30 mL/min) *Enoxaparin/Lovenox 30 mg SQ daily (WT < 150 kg, CrCl > 10-29 mL/min) *Enoxaparin/Lovenox 30 mg SQ BID (WT < 150 kg, CrCl > 30 mL/min) AND *Sequential Compression Device (SCD) Tamar Santiago MD Nov 13, 2017 21:29
[2017-11-13] MEDS ORDERED: BISACODYL 10 MG SUPP RECTAL PRN (21:30)
[2017-11-13] MEDS ORDERED: SENNOSIDES 8.6 MG TAB PO PRN (21:30)
[2017-11-13] MEDS ORDERED: MAGNESIUM HYDROXIDE SUSP 30 ML CUP PO PRN (21:30)
[2017-11-13] MEDS ORDERED: LACTULOSE SYRUP 20 GM/30 ML CUP PO PRN (21:30)
[2017-11-13 21:40] VITALS: BP 157/84; PULSE 69; RESP 24; O2SAT 95
--- NOTE | 2017-11-13 22:16 | HHI.HP ---
[facility] Primary Care Physician Admission Diagnosis Gastric outlet obstruction, intractable abdominal pain, sciatica Diagnoses: (1) Gastric outlet obstruction Diagnosis: Principal (2) Pyloric stenosis Diagnosis: Principal (3) Ventral hernia Diagnosis: Principal (4) Intractable abdominal pain Diagnosis: Principal Travel History International Travel<30 Days: No Contact w/Intl Traveler <30 Da: No History of Present Illness This is a 72-year-old female with a PMH of Anxiety, Depression, Bipolar Disorder , Rheumatoid Arthritis, Fibromyalgia, Hepatitis C and GERD who presented to the ER with complaints of abdominal pain which she believes is due to ventral hernia. Has been following with Dr. Crisostomo for her hernia w/ plans for surgical intervention on November 25, however reports severe abdominal pain and worsening chronic back pain x4 days. Was prescribed Marion w/ no relief. Pain is constant, sharp, severe 10/10, worse w/ movement, associated w/ nausea no vomiting. On arrival, BP 142/67, HR 70, O2 sat 97% on RA, Afebrile. CBC unremarkable. Chemistry essentially unremarkable except for BUN 21. Lactic Acid 2.3. LFTs normal. INR 1.0. CT L-spine grade 1 anterior spondylolisthesis of L5 on S1, status post stabilization procedure, no acute findings. CT Abdomen/Pelvis stomach quite distended with considerable material in the stomach, pylorus appears narrowed suggesting gastric reservoir and pyloric stenosis, malignancy not excluded, small ventral hernia with omental fat herniated through the defect, 3 mm nonobstructing stone left kidney. S/p NGT placement in ER w/ some improvement. Review of Systems Except as stated in HPI: all other systems reviewed are Neg ROS: 14 point review of systems otherwise negative. Past Family Social History Past Medical History PMH: Anxiety, Depression, Bipolar Disorder, Rheumatoid Arthritis, Fibromyalgia , Hepatitis C and GERD Past Surgical History PAST SURGICAL HISTORY: Hiatal Hernia Repair, Bilateral Cataract Surgery, Bladder Mesh, Partial Hysterectomy, Left Oophorectomy, Bilateral Hip Replacements, Lumbar Sha and Fusion, Appendectomy, Rectocele Repair, Kiersten Fundoplication Allergies: Coded Allergies: Interferons (Unverified Allergy, Severe, 11/13/17) alendronate sodium (Unverified Allergy, Severe, 11/13/17) aripiprazole (Unverified Allergy, Severe, 11/13/17) atropine (Unverified Allergy, Severe, 11/13/17) azithromycin (Unverified Allergy, Severe, 11/13/17) benzoic acid (Unverified Allergy, Severe, 11/13/17) celecoxib (Unverified Allergy, Severe, 11/13/17) ciprofloxacin (Unverified Allergy, Severe, 11/13/17) codeine (Unverified Allergy, Severe, 11/13/17) dexamethasone (Unverified Allergy, Severe, 11/13/17) diatrizoate meglumine (Unverified Allergy, Severe, 11/13/17) famotidine (Unverified Allergy, Severe, 11/13/17) gadobenic acid (Unverified Allergy, Severe, 11/13/17) gadodiamide (Unverified Allergy, Severe, 11/13/17) gadoteridol (Unverified Allergy, Severe, 11/13/17) hyoscyamine (Unverified Allergy, Severe, 11/13/17) iodixanol (Unverified Allergy, Severe, 11/13/17) iohexol (Unverified Allergy, Severe, 11/13/17) lamotrigine (Unverified Allergy, Severe, 11/13/17) lansoprazole (Unverified Allergy, Severe, 11/13/17) levofloxacin (Unverified Allergy, Severe, 11/13/17) metaxalone (Unverified Allergy, Severe, 11/13/17) methenamine (Unverified Allergy, Severe, 11/13/17) methylene blue (Unverified Allergy, Severe, 11/13/17) metronidazole (Unverified Allergy, Severe, 11/13/17) nabumetone (Unverified Allergy, Severe, 11/13/17) nitrofurantoin (Unverified Allergy, Severe, 11/13/17) ofloxacin (Unverified Allergy, Severe, 11/13/17) omeprazole (Unverified Allergy, Severe, 11/13/17) oxybutynin (Unverified Allergy, Severe, 11/13/17) pantoprazole (Unverified Allergy, Severe, 11/13/17) penicillin G (Unverified Allergy, Severe, 11/13/17) prednisone (Unverified Allergy, Severe, 11/13/17) raloxifene (Unverified Allergy, Severe, 11/13/17) risedronate sodium (Unverified Allergy, Severe, 11/13/17) salicylates (Unverified Allergy, Severe, 11/13/17) sulfamethoxazole (Unverified Allergy, Severe, 11/13/17) triamcinolone (Unverified Allergy, Severe, 11/13/17) trimethoprim (Unverified Allergy, Severe, 11/13/17) valacyclovir (Unverified Allergy, Severe, 11/13/17) vancomycin (Unverified Allergy, Severe, 11/13/17) ziprasidone (Unverified Allergy, Severe, 11/13/17) acetaminophen (Unverified Adverse Reaction, Severe, HAS LIVER FAILURE, 11/13) oxycodone (Verified Adverse Reaction, Unknown, 11/13/17) pt refusing meds with this, previous problem with addiction Uncoded Allergies: ANTIBIOTIC (Allergy, Severe, CAN TAKE KEFLEX CEFTIN ROCEPHIN, 06/18/04) ARTHROTEC (Allergy, Severe, 06/18/04) CATS (Allergy, Severe, 06/18/04) CIGARETTE SMOKE (Allergy, Severe, 06/18/04) DOGS (Allergy, Severe, 06/18/04) EXHAUST FUMES (Allergy, Severe, 06/18/04) GRASS (Allergy, Severe, 06/18/04) LEVBID (Allergy, Severe, 06/18/04) MOLDS (Allergy, Severe, 06/18/04) NEXIUM (Allergy, Severe, 06/18/04) PERFUME (Allergy, Severe, 06/18/04) PESTICIDES (Allergy, Severe, 06/18/04) TREES (Allergy, Severe, 06/18/04) WEEDS (Allergy, Severe, 06/18/04) Family History PAST FAMILY HISTORY: Reviewed. No h/o DM or CAD Social History PAST SOCIAL HISTORY: Negative for alcohol or tobacco. Positive for Marijuana per Physical Exam Vital Signs Vital Signs Date Time Temp Pulse Resp B/P (MAP) Pulse Ox O2 Delivery O2 Flow Rate FiO2 11/13/17 21:40 69 24 157/84 (108) 95 Room Air 11/13/17 21:32 16 11/13/17 20:19 14 98 Room Air 11/13/17 19:37 98.9 70 16 142/67 (92) 97 Physical Exam PE: GENERAL: Pleasant middle-aged white female in no acute distress. NGT in place to suction. HEENT: PERRLA, EOMI. No scleral icterus or conjunctival pallor. No lid lag or facial droop. CARDIOVASCULAR: Regular rate and rhythm. No obvious murmurs to auscultation. No chest tenderness to palpation. RESPIRATORY: No obvious rhonchi or wheezing. Clear to auscultation. Breath sounds equal bilaterally. GASTROINTESTINAL: Abdomen soft, distended, generalized tenderness to palpation. BS normal. +ventral hernia, reducible. MUSCULOSKELETAL: Extremities without clubbing, cyanosis, or edema. No obvious deformities. NEUROLOGICAL: Awake, alert and oriented x4. No focal neurologic deficits. Moving both upper and lower extremities spontaneously. Laboratory Laboratory Tests Test 11/13/17 19:40 White Blood Count 5.3 Red Blood Count 4.30 Hemoglobin 12.8 Hematocrit 36.3 Mean Corpuscular Volume 84.4 Mean Corpuscular Hemoglobin 29.7 Mean Corpuscular Hemoglobin Concent 35.2 Red Cell Distribution Width 12.4 Platelet Count 149 Mean Platelet Volume 8.5 Neutrophils (%) (Auto) 57.6 Lymphocytes (%) (Auto) 32.5 Monocytes (%) (Auto) 7.1 Eosinophils (%) (Auto) 2.0 Basophils (%) (Auto) 0.8 Neutrophils # (Auto) 3.1 Lymphocytes # (Auto) 1.7 Monocytes # (Auto) 0.4 Eosinophils # (Auto) 0.1 Basophils # (Auto) 0.0 CBC Comment DIFF FINAL Differential Comment Prothrombin Time 10.6 Prothromb Time International Ratio 1.0 Activated Partial Thromboplast Time 23.6 Blood Urea Nitrogen 21 Creatinine 0.86 Random Glucose 143 Total Protein 7.7 Albumin 4.0 Calcium Level 8.6 Alkaline Phosphatase 56 Aspartate Amino Transf (AST/SGOT) 19 Alanine Aminotransferase (ALT/SGPT) 24 Total Bilirubin 0.4 Sodium Level 138 Potassium Level 3.9 Chloride Level 105 Carbon Dioxide Level 24.5 Anion Gap 9 Estimat Glomerular Filtration Rate 65 Lactic Acid Level 2.3 Lipase 161 Result Diagram: 11/13/17193911/13/171939 Caprini VTE Risk Assessment Caprini VTE Risk Assessment: No/Low Risk (score <= 1) Caprini Risk Assessment Model Point Value = 1 Point Value = 2 Point Value = 3 Point Value = 5 Age 41-60 Minor surgery BMI > 25 kg/m2 Swollen legs Varicose veins or History of unexplained or recurrent spontaneous Oral contraceptives or hormone replacement Sepsis (< 1 month) Serious lung disease, including pneumonia (< 1 month) Abnormal pulmonary function Acute myocardial infarction Congestive heart failure (< 1 month) History of inflammatory bowel disease Medical patient at bed rest Age 61-74 Arthroscopic surgery Major open surgery (> 45 min) Laparoscopic surgery (> 45 min) Malignancy Confined to bed (> 72 hours) Immobilizing plaster cast Central venous access Age >= 75 History of VTE Family history of VTE Factor V Leiden Prothrombin [id number] Lupus anticoagulant Anticardiolipin antibodies Elevated serum homocysteine Heparin-induced thrombocytopenia Other congenital or acquired thrombophilia Stroke (< 1 month) Elective arthroplasty Hip, pelvis, or leg fracture Acute spinal cord injury (< 1 month) Prophylaxis Regimen Total Risk Factor Score Risk Level Prophylaxis Regimen 0-1 Low Early ambulation 2 Moderate Order ONE of the following: *Sequential Compression Device (SCD) *Heparin 5000 units SQ BID 3-4 Higher Order ONE of the following medications: *Heparin 5000 units SQ TID *Enoxaparin/Lovenox 40 mg SQ daily (WT < 150 kg, CrCl > 30 mL/min) *Enoxaparin/Lovenox 30 mg SQ daily (WT < 150 kg, CrCl > 10-29 mL/min) *Enoxaparin/Lovenox 30 mg SQ BID (WT < 150 kg, CrCl > 30 mL/min) AND/OR *Sequential Compression Device (SCD) 5 or more Highest Order ONE of the following medications: *Heparin 5000 units SQ TID (Preferred with Epidurals) *Enoxaparin/Lovenox 40 mg SQ daily (WT < 150 kg, CrCl > 30 mL/min) *Enoxaparin/Lovenox 30 mg SQ daily (WT < 150 kg, CrCl > 10-29 mL/min) *Enoxaparin/Lovenox 30 mg SQ BID (WT < 150 kg, CrCl > 30 mL/min) AND *Sequential Compression Device (SCD) Assessment and Plan Problem List: (1) Gastric outlet obstruction ICD Code: K31.1 - Adult hypertrophic pyloric stenosis Status: Acute (2) Pyloric stenosis ICD Code: K31.1 - Adult hypertrophic pyloric stenosis (3) Ventral hernia ICD Code: K43.9 - Ventral hernia without obstruction or gangrene (4) Intractable abdominal pain ICD Code: R10.9 - Unspecified abdominal pain Status: Acute Assessment and Plan A/P: 1. Gastric Outlet Obstruction: secondary to pyloric stenosis and gastric bezoar, CT Abd/Pelvis w/ significant distention of stomach, images reviewed by me. S/p NGT in ER, continue suction, NPO, IVF for hydration. 2. Pyloric Stenosis: seen on CT Abd/Pelvisl, previous Kiersten Fundoplication, will consult GI for further evaluation/intervention. 3. Ventral Hernia: Follows w/ Dr. Crisostomo, scheduled for surgery 11/25/17, however reports hernia larger and more painful. CT Abd/Pelvis w/ small ventral hernia w/ some omental fat herniated through defect, no obstruction, images reviewed. NPO, IVF, Consult Dr. Crisostomo for further eval. 4. Intractable Abd Pain: given Marion as outpatient w/ minimal relief, s/p Morphine in ER w/ significant improvement, will continue analgesics/antiemetics as needed. 5. DVT Prophylaxis: SCD/Teds. 6. Social work for d/c planning as needed. 7. Case discussed w/ ER physician at length, labs/records/imaging reviewed by me. Physician Certification 2 Midnight Certification Type: Admission for Inpatient Services Order for Inpatient Services The services are ordered in accordance with Medicare regulations or non- Medicare payer requirements, as applicable. In the case of services not specified as inpatient-only, they are appropriately provided as inpatient services in accordance with the 2-midnight benchmark. Estimated LOS (days): 2 days is the estimated time the patient will need to remain in the hospital, assuming treatment plan goals are met and no additional complications. Post-Hospital Plan: Not yet determined Tamar Santiago MD Nov 13, 2017 22:16
--- NOTE | 2017-11-13 22:20 | RADRPT ---
EXAM DATE/TIME: 11/13/2017 21:44 [facility] COMPARISON: No previous studies available for comparison. INDICATIONS : NG tube placement. MEDICAL HISTORY : Cardiovascular disease. Hepatitis C. Cirrhosis. SURGICAL HISTORY : Appendectomy. Hysterectomy.Fusion, lumbar.Spinal stimulator. ENCOUNTER: Initial ACUITY: 1 day PAIN SCORE: 0/10 LOCATION: Abdomen. FINDINGS: There is NG tube with its tip in the distal esophagus. There is a spinal stimulator seen in the left upper pelvic region with lead directed superiorly towards the thoracic spine. Transpedicular screws a re seen in the lower lumbar spine and upper sacrum. Bilateral hip prostheses are present. CONCLUSION: NG tube in the distal esophagus. Dillon Mariano MD on November 13, 2017 at 22:16 Board Certified Radiologist. This report was verified electronically.
[2017-11-13] MEDS: SODIUM CHLOR 0.9% 1000 ML INJ 1,000 ML IV SCH (22:52)
[2017-11-13] MEDS: METOCLOPRAMIDE HCL 10 MG/2 ML VIAL IV PUSH SCH (22:53)
[2017-11-14 00:11] VITALS: BP 169/69; PULSE 66; RESP 18; TEMP 98.4; O2SAT 95
[2017-11-14 01:02] LABS: HEMATOCRIT 33.7 % (35.0-46.0); HEMOGLOBIN 11.8 GM/DL (11.6-15.3)
[2017-11-14] MEDS: MORPHINE SULFATE 2 MG/ML SYRINGE IV PUSH PRN ×6 (01:52→20:36)
[2017-11-14] MEDS ORDERED: LACTATED RINGER'S 1000 ML IV PRN (03:45)
[2017-11-14] MEDS ORDERED: SODIUM CHLORID 0.9% 500 ML IV PRN (03:45)
[2017-11-14] MEDS: METOCLOPRAMIDE HCL 10 MG/2 ML VIAL IV PUSH SCH ×3 (05:05→20:35)
[2017-11-14 07:04] LABS: BASOPHIL % 0.5 % (0.0-2.0); EOSINOPHIL # 0.1 TH/MM3 (0-0.4); EOSINOPHIL % 1.9 % (0.0-4.0); HEMATOCRIT 36.1 % (35.0-46.0); HEMOGLOBIN 12.4 GM/DL (11.6-15.3); LYMPHOCYTE # 1.4 TH/MM3 (1.0-4.8); MEAN CELL VOLUME 85.3 FL (80.0-100.0); MEAN CORPUSCULAR HEMOGLOBIN 29.2 PG (27.0-34.0); MEAN CORPUSCULAR HGB CONC 34.3 % (32.0-36.0); MEAN PLATELET VOLUME 8.2 FL (7.0-11.0); MONO % 7.4 % (0.0-8.0); MONOCYTE # 0.4 TH/MM3 (0-0.9); NEUT % 61.2 % (16.0-70.0); PLATELET COUNT 129 TH/MM3 (150-450); RED BLOOD COUNT 4.23 MIL/MM3 (4.00-5.30); RED CELL DISTRIBUTION WIDTH 12.9 % (11.6-17.2); WHITE BLOOD COUNT 4.9 TH/MM3 (4.0-11.0)
[2017-11-14] MEDS: SODIUM CHLOR 0.9% 1000 ML INJ 1,000 ML IV SCH ×2 (07:25→15:54)
[2017-11-14 07:44] LABS: ALBUMIN 3.7 GM/DL (3.4-5.0); AST (GOT) 16 U/L (15-37); BICARBONATE 25.2 MEQ/L (21.0-32.0); BLOOD UREA NITROGEN 15 MG/DL (7-18); CALCIUM 7.9 MG/DL (8.5-10.1); CHLORIDE 107 MEQ/L (98-107); CREATININE 0.62 MG/DL (0.50-1.00); GLOMERULAR FILTRATION RATE 95 ML/MIN (>89); GLUCOSE,RANDOM 154 MG/DL (74-106); SODIUM (NA) 140 MEQ/L (136-145)
[2017-11-14 07:46] LABS: ALT (GPT) 21 U/L (10-53)
[2017-11-14 07:48] LABS: ALKALINE PHOSPHATASE 52 U/L (45-117); TOTAL BILIRUBIN ADULT 0.7 MG/DL (0.2-1.0)
[2017-11-14 08:00] VITALS: BP 149/67; PULSE 64; RESP 18; TEMP 98.5; O2SAT 92
[2017-11-14] MEDS: SODIUM CHLORIDE 0.9% FLUSH 10 ML FLUSH IV FLUSH SCH ×2 (08:03→20:34)
[2017-11-14] MEDS: DOCUSATE SODIUM 50 MG/SENNA 8.6 MG TAB PO SCH ×2 (08:03→20:35)
--- NOTE | 2017-11-14 08:05 | RADRPT ---
EXAM DATE/TIME: 11/14/2017 07:38 [facility] COMPARISON: CT ABDOMEN & PELVIS W/O CONTRAST, November 13, 2017, 19:52. CHEST SINGLE AP, August 04, 2017, 5:44. INDICATIONS : Check placement of NG tube. MEDICAL HISTORY : Cardiovascular disease. Hepatitis C. Cirrhosis. SURGICAL HISTORY : Appendectomy. Hysterectomy.Fusion, lumbar.Spinal stimulator. ENCOUNTER: Subsequent ACUITY: 1 day PAIN SCORE: 0/10 LOCATION: Bilateral chest FINDINGS: 2 AP upright portable views of the chest are obtained. There is a nasogastric tube with the proximal port overlying the region of the stomach the level of the gastroesophageal junction. There is a neuro stimulator overlying the lower thoracic spine. The lungs are well-inflated and clear. Heart size is n ormal. Pulmonary vasculature is normal. Osseous structures are grossly unremarkable. CONCLUSION: Nasogastric tube with proximal port the level of the gastroesophageal junction. No evidence of acute cardiopulmonary disease. Lyssa Tate MD on November 14, 2017 at 8:00 Board Certified Radiologist. This report was verified electronically.
--- NOTE | 2017-11-14 09:22 | HHI.PR ---
Subjective Remarks This is a 72-year-old female with a PMH of Anxiety, Depression, Bipolar Disorder , Rheumatoid Arthritis, Fibromyalgia, Hepatitis C and GERD who presented to the ER with complaints of abdominal pain which she believes is due to ventral hernia. Has been following with Dr. Crisostomo for her hernia w/ plans for surgical intervention on November 25, however reports severe abdominal pain and worsening chronic back pain x4 days. Was prescribed [place] w/ no relief. Pain is constant, sharp, severe 10/10, worse w/ movement, associated w/ nausea no vomiting. On arrival, BP 142/67, HR 70, O2 sat 97% on RA, Afebrile. CBC unremarkable. Chemistry essentially unremarkable except for BUN 21. Lactic Acid 2.3. LFTs normal. INR 1.0. CT L-spine grade 1 anterior spondylolisthesis of L5 on S1, status post stabilization procedure, no acute findings. CT Abdomen/Pelvis stomach quite distended with considerable material in the stomach, pylorus appears narrowed suggesting gastric reservoir and pyloric stenosis, malignancy not excluded, small ventral hernia with omental fat herniated through the defect, 3 mm nonobstructing stone left kidney. S/p NGT placement in ER w/ some improvement. 11/14: Stable in her bedroom, seen by GI specialist at this time and discussed with Doctor Briana Haile, with Diagnosis of Gastric Outlet obstruction, Pyloric stenosis history of Hepatitis C, suspected Gastroparesis, history of Hiatal hernia repair, Planning for EGD with dilation for tomorrow, PPI, NG tube for now and awaiting for General Surgery consult. Objective Vital Signs Date Time Temp Pulse Resp B/P (MAP) Pulse Ox O2 Delivery O2 Flow Rate FiO2 11/14/17 05:10 18 11/14/17 02:05 18 11/14/17 00:11 98.4 66 18 169/69 (102) 95 11/13/17 21:40 69 24 157/84 (108) 95 Room Air 11/13/17 21:32 16 11/13/17 20:19 14 98 Room Air 11/13/17 19:37 98.9 70 16 142/67 (92) 97 I/O 11/13/17 11/13/17 11/13/17 11/14/17 11/14/17 11/14/17 07:00 15:00 23:00 07:00 15:00 23:00 Intake Total 0 ml Output Total 125 ml Balance -125 ml Intake Oral 0 ml Output Gastric Drainage Total 125 ml # Voids 1 Result Diagram: 11/14/1723 11/14/1723 Imaging Last Impressions Chest X-Ray 11/14/17 0000 Signed Impressions: Service Date/Time: Tuesday, November 14, 2017 07:38 - CONCLUSION: Nasogastric tube with proximal port the level of the gastroesophageal junction. No evidence of acute cardiopulmonary disease. Lyssa Tate MD Lumbar Spine CT 11/13/17 0000 Signed Impressions: Service Date/Time: Monday, November 13, 2017 19:52 - CONCLUSION: 1. Grade 1 anterior spondylolisthesis of L5 on S1. The patient is status post stabilization procedure. 2. Degenerative changes throughout as described above. 3. Left renal stone. Dillon Mariano MD Abdomen/Pelvis CT 11/13/17 0000 Signed Impressions: Service Date/Time: Monday, November 13, 2017 19:52 - CONCLUSION: 1. The stomach is quite distended with considerable material in the stomach. The pylorus appears narrowed suggesting a gastric bezoar and pyloric stenosis. Endoscopy would be warranted for further assessment. Malignancy is not excluded. 2. Small ventral hernia with some omental fat herniated through the defect. 3. 3 mm nonobstructing stone in the left kidney.. Jamal Hinds MD Abdomen X-Ray 11/13/17 0000 Signed Impressions: Service Date/Time: Monday, November 13, 2017 21:44 - CONCLUSION: NG tube in the distal esophagus. Dillon Mariano MD Procedures NG tube at slow suction. Other Results Laboratory Tests Test 11/13/17 19:40 11/14/17 06:23 Prothrombin Time 10.6 SEC Prothromb Time International Ratio 1.0 RATIO Activated Partial Thromboplast Time 23.6 SEC Lactic Acid Level 2.3 mmol/L Lipase 161 U/L White Blood Count 4.9 TH/MM3 Red Blood Count 4.23 MIL/MM3 Hemoglobin 12.4 GM/DL Hematocrit 36.1 % Mean Corpuscular Volume 85.3 FL Mean Corpuscular Hemoglobin 29.2 PG Mean Corpuscular Hemoglobin Concent 34.3 % Red Cell Distribution Width 12.9 % Platelet Count 129 TH/MM3 Mean Platelet Volume 8.2 FL Neutrophils (%) (Auto) 61.2 % Lymphocytes (%) (Auto) 29.0 % Monocytes (%) (Auto) 7.4 % Eosinophils (%) (Auto) 1.9 % Basophils (%) (Auto) 0.5 % Neutrophils # (Auto) 3.0 TH/MM3 Lymphocytes # (Auto) 1.4 TH/MM3 Monocytes # (Auto) 0.4 TH/MM3 Eosinophils # (Auto) 0.1 TH/MM3 Basophils # (Auto) 0.0 TH/MM3 CBC Comment DIFF FINAL Differential Comment Blood Urea Nitrogen 15 MG/DL Creatinine 0.62 MG/DL Random Glucose 154 MG/DL Total Protein 7.0 GM/DL Albumin 3.7 GM/DL Calcium Level 7.9 MG/DL Alkaline Phosphatase 52 U/L Aspartate Amino Transf (AST/SGOT) 16 U/L Alanine Aminotransferase (ALT/SGPT) 21 U/L Total Bilirubin 0.7 MG/DL Sodium Level 140 MEQ/L Potassium Level 3.9 MEQ/L Chloride Level 107 MEQ/L Carbon Dioxide Level 25.2 MEQ/L Anion Gap 8 MEQ/L Estimat Glomerular Filtration Rate 95 ML/MIN Objective Remarks GENERAL: No acute distress. NGT in place to suction. HEENT: PERRLA, EOMI. No scleral icterus or conjunctival pallor. No lid lag or facial droop. CARDIOVASCULAR: Regular rate and rhythm. No obvious murmurs to auscultation. No chest tenderness to palpation. RESPIRATORY: No obvious rhonchi or wheezing. Clear to auscultation. Breath sounds equal bilaterally. GASTROINTESTINAL: Abdomen soft, distended, generalized tenderness to palpation. BS normal. +ventral hernia non reducible at this time. MUSCULOSKELETAL: Extremities without clubbing, cyanosis, or edema. No obvious deformities. NEUROLOGICAL: Awake, alert and oriented x4. No focal neurologic deficits. Moving both upper and lower extremities spontaneously. Medications and IVs Current Medications Medications (Trade) Dose Ordered Sig/Gabriel Route Start Time Stop Time Status Last Admin (Ativan Inj) 1 mg Q4H PRN IV PUSH 11/13/17 21:30 (Reglan Inj) 10 mg Q8HR IV PUSH 11/13/17 22:00 11/14/17 05:05 Sodium Chloride 1,000 ml @ 100 mls/hr Q10H IV 11/13/17 21:25 11/13/17 22:52 (NS Flush) 2 ml UNSCH PRN IV FLUSH 11/13/17 21:30 (NS Flush) 2 ml BID IV FLUSH 11/14/17 09:00 (Zofran Inj) 4 mg Q6H PRN IVP 11/13/17 21:30 (Morphine Inj) 1 mg Q3H PRN IV PUSH 11/13/17 21:30 11/14/17 08:51 (Morphine Inj) 2 mg Q3H PRN IV PUSH 11/13/17 21:30 11/14/17 01:52 (Patricia-Colace) 1 tab BID PO 11/14/17 09:00 (Milk Of Magnesia Liq) 30 ml Q12H PRN PO 11/13/17 21:30 (Senokot) 17.2 mg Q12H PRN PO 11/13/17 21:30 (Dulcolax Supp) 10 mg DAILY PRN RECTAL 11/13/17 21:30 (Lactulose Liq) 30 ml DAILY PRN PO 11/13/17 21:30 Lactated Ringer's 1,000 ml @ 30 mls/hr Q24H PRN IV 11/14/17 03:45 11/17/17 03:44 Sodium Chloride 500 ml @ 30 mls/hr [id number] PRN IV 11/14/17 03:45 11/17/17 03:44 A/P Assessment and Plan (1) Gastric outlet obstruction ICD Code: K31.1 - Adult hypertrophic pyloric stenosis Status: Acute (2) Pyloric stenosis ICD Code: K31.1 - Adult hypertrophic pyloric stenosis (3) Ventral hernia ICD Code: K43.9 - Ventral hernia without obstruction or gangrene (4) Intractable abdominal pain ICD Code: R10.9 - Unspecified abdominal pain Status: Acute 1. Gastric Outlet Obstruction: secondary to pyloric stenosis and gastric bezoar, CT Abd/Pelvis w/ significant distention of stomach, images reviewed by me. S/p NGT in ER, continue suction, NPO, IVF for hydration. Seen by GI specialist at this time and discussed with Doctor Briana Haile, with Diagnosis of Gastric Outlet obstruction, Pyloric stenosis history of Hepatitis C, suspected Gastroparesis, history of Hiatal hernia repair, Planning for EGD with dilation for tomorrow, PPI, NG tube for now and awaiting for General Surgery consult. 2. Pyloric Stenosis: seen on CT Abd/Pelvisl, previous Kiersten Fundoplication. 3. Ventral Hernia: Follows w/ Dr. Crisostomo, scheduled for surgery 11/25/17, however reports hernia larger and more painful. CT Abd/Pelvis w/ small ventral hernia w/ some omental fat herniated through defect, no obstruction, images reviewed. NPO, IVF, Consult Dr. Crisostomo for further eval. 4. Intractable Abd Pain: given [place] as outpatient w/ minimal relief, s/p Morphine in ER w/ significant improvement, will continue analgesics/antiemetics as needed. DVT Prophylaxis: SCD/Teds. Discharge Planning once cleared by Specialists. Edward Avila MD Nov 14, 2017 09:22
--- NOTE | 2017-11-14 11:14 | PD.CONS ---
HPI History of Present Illness This is a 72 year old female who was admitted on 11/13/17 with symptoms of abdominal pain. Patient had recent hernia repair surgery with Dr. cheryl jordan back in July. Since that surgery patient has noted some sciatica-type low back pain, as well as dysphasia. Patient did note dysphasia after surgery but states that it got better up until the past couple of days. She was able to eat regular food yesterday a.m. before admission, but did choke on water and sometimes her medications. Patient also notes that she cut out of the shower yesterday a.m. became very diaphoretic and thought she was, pass out but did not. She denied any nausea or vomiting with her diaphoresis. Patient on notes some mild constipation which she has attempted to control with [id number] medicines since July 2017. She has been a patient of Dr. Curiel in the past and has had previous EGDs and colonoscopies 2014 and possibly later. Patient is a fair to poor historian on her history. Patient does note some mild bloating, and abdominal tenderness at the site of her previous surgical incision mid abdomen which could possibly be a hernia she has a history of hepatitis C and has been treated with her family back in 2015. 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 [employer] and thinks that she may have required her hepatitis C then. She does note history of GERD and reflux which has been a chronic symptom for her. Current CT scan shows stomach to be quite distended. The pylorus appears narrowed suggesting a gastric bezoar and pyloric stenosis. Malignancy cannot be excluded. Small ventral hernia noted. (Lisa Hoffmann) PFSH Past Medical History PMH: Anxiety, Depression, Bipolar Disorder, Rheumatoid Arthritis, Fibromyalgia , Hepatitis C and GERD Past Surgical History PAST SURGICAL HISTORY: Hiatal Hernia Repair, Bilateral Cataract Surgery, Bladder Mesh, Partial Hysterectomy, Left Oophorectomy, Bilateral Hip Replacements, Lumbar Sha and Fusion, Appendectomy, Rectocele Repair, Kiersten Fundoplication (Lisa Hoffmann) Coded Allergies: Interferons (Unverified Allergy, Severe, 11/13/17) alendronate sodium (Unverified Allergy, Severe, 11/13/17) aripiprazole (Unverified Allergy, Severe, 11/13/17) atropine (Unverified Allergy, Severe, 11/13/17) azithromycin (Unverified Allergy, Severe, 11/13/17) benzoic acid (Unverified Allergy, Severe, 11/13/17) celecoxib (Unverified Allergy, Severe, 11/13/17) ciprofloxacin (Unverified Allergy, Severe, 11/13/17) codeine (Unverified Allergy, Severe, 11/13/17) dexamethasone (Unverified Allergy, Severe, 11/13/17) diatrizoate meglumine (Unverified Allergy, Severe, 11/13/17) famotidine (Unverified Allergy, Severe, 11/13/17) gadobenic acid (Unverified Allergy, Severe, 11/13/17) gadodiamide (Unverified Allergy, Severe, 11/13/17) gadoteridol (Unverified Allergy, Severe, 11/13/17) hyoscyamine (Unverified Allergy, Severe, 11/13/17) iodixanol (Unverified Allergy, Severe, 11/13/17) iohexol (Unverified Allergy, Severe, 11/13/17) lamotrigine (Unverified Allergy, Severe, 11/13/17) lansoprazole (Unverified Allergy, Severe, 11/13/17) levofloxacin (Unverified Allergy, Severe, 11/13/17) metaxalone (Unverified Allergy, Severe, 11/13/17) methenamine (Unverified Allergy, Severe, 11/13/17) methylene blue (Unverified Allergy, Severe, 11/13/17) metronidazole (Unverified Allergy, Severe, 11/13/17) nabumetone (Unverified Allergy, Severe, 11/13/17) nitrofurantoin (Unverified Allergy, Severe, 11/13/17) ofloxacin (Unverified Allergy, Severe, 11/13/17) omeprazole (Unverified Allergy, Severe, 11/13/17) oxybutynin (Unverified Allergy, Severe, 11/13/17) pantoprazole (Unverified Allergy, Severe, 11/13/17) penicillin G (Unverified Allergy, Severe, 11/13/17) prednisone (Unverified Allergy, Severe, 11/13/17) raloxifene (Unverified Allergy, Severe, 11/13/17) risedronate sodium (Unverified Allergy, Severe, 11/13/17) salicylates (Unverified Allergy, Severe, 11/13/17) sulfamethoxazole (Unverified Allergy, Severe, 11/13/17) triamcinolone (Unverified Allergy, Severe, 11/13/17) trimethoprim (Unverified Allergy, Severe, 11/13/17) valacyclovir (Unverified Allergy, Severe, 11/13/17) vancomycin (Unverified Allergy, Severe, 11/13/17) ziprasidone (Unverified Allergy, Severe, 11/13/17) acetaminophen (Unverified Adverse Reaction, Severe, HAS LIVER FAILURE, 11/13) oxycodone (Verified Adverse Reaction, Unknown, 11/13/17) pt refusing meds with this, previous problem with addiction Uncoded Allergies: ANTIBIOTIC (Allergy, Severe, CAN TAKE KEFLEX CEFTIN ROCEPHIN, 06/18/04) ARTHROTEC (Allergy, Severe, 06/18/04) CATS (Allergy, Severe, 06/18/04) CIGARETTE SMOKE (Allergy, Severe, 06/18/04) DOGS (Allergy, Severe, 06/18/04) EXHAUST FUMES (Allergy, Severe, 06/18/04) GRASS (Allergy, Severe, 06/18/04) LEVBID (Allergy, Severe, 06/18/04) MOLDS (Allergy, Severe, 06/18/04) NEXIUM (Allergy, Severe, 06/18/04) PERFUME (Allergy, Severe, 06/18/04) PESTICIDES (Allergy, Severe, 06/18/04) TREES (Allergy, Severe, 06/18/04) WEEDS (Allergy, Severe, 06/18/04) Medications Last Impressions Chest X-Ray 11/14/17 0000 Signed Impressions: Service Date/Time: Tuesday, November 14, 2017 07:38 - CONCLUSION: Nasogastric tube with proximal port the level of the gastroesophageal junction. No evidence of acute cardiopulmonary disease. Lyssa Tate MD Lumbar Spine CT 11/13/17 0000 Signed Impressions: Service Date/Time: Monday, November 13, 2017 19:52 - CONCLUSION: 1. Grade 1 anterior spondylolisthesis of L5 on S1. The patient is status post stabilization procedure. 2. Degenerative changes throughout as described above. 3. Left renal stone. Dillon Mariano MD Abdomen/Pelvis CT 11/13/17 0000 Signed Impressions: Service Date/Time: Monday, November 13, 2017 19:52 - CONCLUSION: 1. The stomach is quite distended with considerable material in the stomach. The pylorus appears narrowed suggesting a gastric bezoar and pyloric stenosis. Endoscopy would be warranted for further assessment. Malignancy is not excluded. 2. Small ventral hernia with some omental fat herniated through the defect. 3. 3 mm nonobstructing stone in the left kidney.. Jamal Hinds MD Abdomen X-Ray 11/13/17 0000 Signed Impressions: Service Date/Time: Monday, November 13, 2017 21:44 - CONCLUSION: NG tube in the distal esophagus. Dillon Mariano MD Family History PAST FAMILY HISTORY: Reviewed. No h/o DM or CAD No family history of colon cancer Social History PAST SOCIAL HISTORY: Negative for alcohol or tobacco. Positive for Marijuana per (Lisa Hoffmann) Review of Systems Constitutional: COMPLAINS OF: Fatigue Gastrointestinal: COMPLAINS OF: Abdominal pain, Difficulty Swallowing (Lisa Hoffmann) GI Exam Vitals I&O Vital Signs Date Time Temp Pulse Resp B/P (MAP) Pulse Ox O2 Delivery O2 Flow Rate FiO2 11/14/17 08:56 18 11/14/17 08:00 98.5 64 18 149/67 (94) 92 11/14/17 02:05 18 11/14/17 00:11 98.4 66 18 169/69 (102) 95 11/13/17 21:40 69 24 157/84 (108) 95 Room Air 11/13/17 21:32 16 11/13/17 20:19 14 98 Room Air 11/13/17 19:37 98.9 70 16 142/67 (92) 97 I/O 11/13/17 11/13/17 11/13/17 11/14/17 11/14/17 11/14/17 07:00 15:00 23:00 07:00 15:00 23:00 Intake Total 0 ml Output Total 125 ml Balance -125 ml Intake Oral 0 ml Output Gastric Drainage Total 125 ml # Voids 1 Imaging Last Impressions Chest X-Ray 11/14/17 0000 Signed Impressions: Service Date/Time: Tuesday, November 14, 2017 07:38 - CONCLUSION: Nasogastric tube with proximal port the level of the gastroesophageal junction. No evidence of acute cardiopulmonary disease. Lyssa Tate MD Lumbar Spine CT 11/13/17 0000 Signed Impressions: Service Date/Time: Monday, November 13, 2017 19:52 - CONCLUSION: 1. Grade 1 anterior spondylolisthesis of L5 on S1. The patient is status post stabilization procedure. 2. Degenerative changes throughout as described above. 3. Left renal stone. Dillon Mariano MD Abdomen/Pelvis CT 11/13/17 0000 Signed Impressions: Service Date/Time: Monday, November 13, 2017 19:52 - CONCLUSION: 1. The stomach is quite distended with considerable material in the stomach. The pylorus appears narrowed suggesting a gastric bezoar and pyloric stenosis. Endoscopy would be warranted for further assessment. Malignancy is not excluded. 2. Small ventral hernia with some omental fat herniated through the defect. 3. 3 mm nonobstructing stone in the left kidney.. Jamal Hinds MD Abdomen X-Ray 11/13/17 0000 Signed Impressions: Service Date/Time: Monday, November 13, 2017 21:44 - CONCLUSION: NG tube in the distal esophagus. Dillon Mariano MD Laboratory Test 11/13/17 19:40 11/14/17 00:51 11/14/17 06:23 White Blood Count 5.3 TH/MM3 4.9 TH/MM3 Red Blood Count 4.30 MIL/MM3 4.23 MIL/MM3 Hemoglobin 12.8 GM/DL 11.8 GM/DL 12.4 GM/DL Hematocrit 36.3 % 33.7 % 36.1 % Mean Corpuscular Volume 84.4 FL 85.3 FL Mean Corpuscular Hemoglobin 29.7 PG 29.2 PG Mean Corpuscular Hemoglobin Concent 35.2 % 34.3 % Red Cell Distribution Width 12.4 % 12.9 % Platelet Count 149 TH/MM3 129 TH/MM3 Mean Platelet Volume 8.5 FL 8.2 FL Neutrophils (%) (Auto) 57.6 % 61.2 % Lymphocytes (%) (Auto) 32.5 % 29.0 % Monocytes (%) (Auto) 7.1 % 7.4 % Eosinophils (%) (Auto) 2.0 % 1.9 % Basophils (%) (Auto) 0.8 % 0.5 % Neutrophils # (Auto) 3.1 TH/MM3 3.0 TH/MM3 Lymphocytes # (Auto) 1.7 TH/MM3 1.4 TH/MM3 Monocytes # (Auto) 0.4 TH/MM3 0.4 TH/MM3 Eosinophils # (Auto) 0.1 TH/MM3 0.1 TH/MM3 Basophils # (Auto) 0.0 TH/MM3 0.0 TH/MM3 CBC Comment DIFF FINAL DIFF FINAL Differential Comment Prothrombin Time 10.6 SEC Prothromb Time International Ratio 1.0 RATIO Activated Partial Thromboplast Time 23.6 SEC Blood Urea Nitrogen 21 MG/DL 15 MG/DL Creatinine 0.86 MG/DL 0.62 MG/DL Random Glucose 143 MG/DL 154 MG/DL Total Protein 7.7 GM/DL 7.0 GM/DL Albumin 4.0 GM/DL 3.7 GM/DL Calcium Level 8.6 MG/DL 7.9 MG/DL Alkaline Phosphatase 56 U/L 52 U/L Aspartate Amino Transf (AST/SGOT) 19 U/L 16 U/L Alanine Aminotransferase (ALT/SGPT) 24 U/L 21 U/L Total Bilirubin 0.4 MG/DL 0.7 MG/DL Sodium Level 138 MEQ/L 140 MEQ/L Potassium Level 3.9 MEQ/L 3.9 MEQ/L Chloride Level 105 MEQ/L 107 MEQ/L Carbon Dioxide Level 24.5 MEQ/L 25.2 MEQ/L Anion Gap 9 MEQ/L 8 MEQ/L Estimat Glomerular Filtration Rate 65 ML/MIN 95 ML/MIN Lactic Acid Level 2.3 mmol/L Lipase 161 U/L Physical Examination HEENT: Pupils round and reactive to light; normocephalic; atraumatic; NECK: Neck is supple, no JVD, no lymphadenopathy. CHEST: Chest mild diminished breath sounds with no obvious rhonchi or wheezing CARDIAC: Irregular rate and rhythm ABDOMEN: Round, mild distention, with possible hernia at previous mid abdomen surgical site Soft, mild generalized tenderness bowel sounds are present in all four quadrants. EXTREMITIES: No LE edema. SKIN: Normal; no rash; no jaundice. COUNTY AGENT: No focal deficits; alert and oriented times 2 (Lisa Hoffmann) Assessment and Plan Assessment: (1) Gastric outlet obstruction ICD Codes: K31.1 - Adult hypertrophic pyloric stenosis Status: Acute (2) Pyloric stenosis ICD Codes: K31.1 - Adult hypertrophic pyloric stenosis Plan History of hepatitis C patient was treated with hard bony back in 2016. Patient also has some abdominal bloating which could be due to gastroparesis. Patient has complaints of sciatica low back pain 1 week. Dysphasia off and on since July 2017. Currently had last choking spell with water yesterday a.m. he is able to eat solid foods without any choking or coughing. She does note some constipation for the past 4 months, this also could be secondary to her lack of appetite and some dysphagia. Patient has obvious bloating diffuse abdominal tenderness for known. Patient has history of hiatal hernia repair 2 last procedure done July [address] Crisostomo. Patient had diaphoretic episode without nausea and vomiting when getting out of the shower yesterday morning. Plan EGD with dilatation Consent done Nothing by mouth at midnight PPI Anti-emetics Dulcolax suppository as needed for bowel regimen Reglan IV Monitor labs with special attention to hemoglobin NG tube for now Further recommendations will be based on findings this admission She was seen per myself and Dr. Haile , And this note was done on his behalf (Lisa Hoffmann) Physician Comments Seen and examined with RAMESH, egd/dilation under floroscopy and General anesthesia discussed with her and planned for tomorrow. Doubt ventral hernia the reason for her symptoms. Discussed with Dr Ku and Yazan. Dr. méndez will follow from tomorrow. Thank you (Briana Haile MD) Lisa Hoffmann Nov 14, 2017 11:14 Briana Haile MD Nov 14, 2017 12:17
[2017-11-14 12:00] VITALS: BP 151/74; PULSE 86; RESP 18; TEMP 99.1; O2SAT 98
[2017-11-14] MEDS: BISACODYL 10 MG SUPP RECTAL SCH (12:13)
[2017-11-14 16:00] VITALS: BP 141/64; PULSE 80; RESP 18; TEMP 98.5; O2SAT 94
[2017-11-14] MEDS: ONDANSETRON HCL 4 MG/2 ML VIAL IVP PRN (17:04)
--- NOTE | 2017-11-14 17:08 | EKG ---
Date Performed: 11/14/2017 Time Performed: 06:13:33 PTAGE: 72 years EKG: Sinus rhythm RIGHT BUNDLE BRANCH BLOCK LEFT ANTERIOR FASCICULAR BLOCK Compared to previous tracing, DC interval i s longer, otherwise no significant change ABNORMAL ECG PREVIOUS TRACING : 06/29/2017 11.01 DOCTOR: Melquiades Gao Interpretating Date/Time 11/14/2017 17:07:39
[2017-11-14 19:40] VITALS: BP 137/73; PULSE 74; RESP 18; TEMP 99.4; O2SAT 97
[2017-11-14] MEDS ORDERED: PADIMATE (CHAPSTICK) 4.5 GM TUBE TOPICAL PRN (22:00)
[2017-11-14] MEDS ORDERED: PHENOL 1.4% SOLN 180 ML BTL OROPHARYNG PRN (22:15)
[2017-11-14] MEDS ORDERED: ACETAMINOPHEN 650 MG SUPP RECTAL ONE (23:00)
[2017-11-14] MEDS: LORazepam 2 MG/ML VIAL IV PUSH PRN (23:08)
[2017-11-15 00:20] VITALS: BP 157/78; PULSE 77; RESP 18; TEMP 98.2; O2SAT 95
[2017-11-15] MEDS: SODIUM CHLOR 0.9% 1000 ML INJ 1,000 ML IV SCH ×3 (04:09→16:17)
[2017-11-15 04:39] VITALS: BP 151/68; PULSE 83; RESP 18; TEMP 98.8; O2SAT 95
[2017-11-15] MEDS: METOCLOPRAMIDE HCL 10 MG/2 ML VIAL IV PUSH SCH ×3 (05:32→21:19)
[2017-11-15] MEDS: DOCUSATE SODIUM 50 MG/SENNA 8.6 MG TAB PO SCH ×2 (07:55→21:19)
[2017-11-15] MEDS: ONDANSETRON HCL 4 MG/2 ML VIAL IVP PRN (07:56)
[2017-11-15] MEDS: SODIUM CHLORIDE 0.9% FLUSH 10 ML FLUSH IV FLUSH SCH ×2 (07:57→21:00)
[2017-11-15 08:00] VITALS: BP 137/62; PULSE 83; RESP 18; TEMP 98; O2SAT 97
[2017-11-15] MEDS: BISACODYL 10 MG SUPP RECTAL SCH (08:02)
[2017-11-15] MEDS: LORazepam 2 MG/ML VIAL IV PUSH PRN ×2 (08:11→22:43)
[2017-11-15 08:29] LABS: BICARBONATE 24.6 MEQ/L (21.0-32.0); CALCIUM 8.4 MG/DL (8.5-10.1); CREATININE 0.55 MG/DL (0.50-1.00); PHOSPHORUS 3.5 MG/DL (2.5-4.9)
[2017-11-15] MEDS ORDERED: DO NOT ADM ANY ANTICOAGULANT DRUGS PRN (10:09)
--- NOTE | 2017-11-15 10:39 | MB ---
cc: Servando Hand MD DATE: 11/14/2017 CHIEF COMPLAINT AND REASON FOR CONSULTATION: Abdominal pain, the patient known to service, ventral hernia, history of gastric outlet obstruction. HISTORY OF PRESENT ILLNESS: The patient is a 72-year-old female who has a history of reflux, status post Kiersten fundoplication many years ago with recurrence, recent repair and redo, 08/03/2017, done laparoscopically. Postoperatively, the patient did develop a small ventral hernia. She comes to the emergency department with complaints of abdominal pain. She states the pain was somewhat radiating in her back and noticed also bilateral sciatic nerve pain as well. She describes this pain as somewhat achy and occasionally can be sharp and radiation to different abdominal quadrants. Yesterday morning, patient was noted to be getting out of the shower when she had some mild nausea, feelings of diaphoresis and a feeling of passing out. She came to the emergency department for further evaluation and due to her abdominal pain concerns. On further workup, she had a CT scan showing an intact Kiersten fundoplication wrap, along with a significantly dilated stomach and concern for retention of food and a stricture of pylorus. The patient also has a known ventral hernia, which patient is planned for repair on 11/25 of this month. Laboratory workup within normal limits otherwise. Surgery consulted for further evaluation. On my exam, patient confirmed the above and is noted somewhat of a poor historian but does complain of some back pain, sciatic pain and abdominal bloating. She does note some mild dysphagia, but that does not appear to be her primary symptoms. She states her pain is more significant and, again, radiates to multiple quadrants as well. She came to the emergency department for fear of incarcerated ventral hernia, but a CT scan did disprove any incarceration of hernia. PAST MEDICAL HISTORY: Reflux, anxiety, depression, bipolar, rheumatoid arthritis, fibromyalgia, hepatitis C. PAST SURGICAL HISTORY: Hiatal hernia repair x 2, last one 08/03/2017, bilateral cataract surgery, bladder mesh, partial hysterectomy, left oophorectomy, bilateral hip placements, lumbar ne, fusion, appendectomy, rectocele. MEDICATIONS: See EMR. ALLERGIES: INTERFERON, ALENDRONATE, ARIPIPRAZOLE, ATROPINE, AZITHROMYCIN, BENZOIC ACID, CELECOXIB, CIPRO, CODEINE, DEXAMETHASONE, FAMOTIDINE, GADOBENIC ACID, HYOSCYAMINE, IODIXANOL, LAMOTRIGINE, LANSOPRAZOLE, LEVOFLOXACIN, METHOTREXATE, METHENAMINE, METHYLENE BLUE, NITROFURANTOIN, OFLOXACIN, OMEPRAZOLE, OXYBUTYNIN, PANTOPRAZOLE, PENICILLIN G, PREDNISONE, RALOXIFENE, RISEDRONATE, SALICYLATES, SULFA, TRIMETHOPRIM, VALACYCLOVIR, VANCOMYCIN, ZIPRASIDONE, ACETAMINOPHEN, OXYCODONE. THESE ARE UNVERIFIED BY ME, BUT NOTE PER CHART. FAMILY HISTORY: Denies hypertension or diabetes. SOCIAL HISTORY: Denies ETOH or smoking. Positive THC. REVIEW OF SYSTEMS: GENERAL: Denies fevers, chills. HEENT: Denies eye pain, ear pain. NECK: Denies swelling or pain. LUNGS: Denies cough, wheeze. HEART: Denies palpitations or chest pain. ABDOMEN: Complains of dysphagia, nausea, abdominal bloating. GENITOURINARY: Denies dysuria or hematuria. ENDOCRINE: Denies polyuria or polydipsia. INTEGUMENT: Denies masses or lesions. PHYSICAL EXAMINATION: GENERAL: The patient in no acute distress. VITAL SIGNS: Temperature 98.5, pulse 64, respirations 18, blood pressure 149/67, saturation 92%. HEENT: Pupils equal, round, reactive. NECK: Supple. Trachea midline. LUNGS: Bilateral symmetric expansion, clear. HEART: S1, S2 regular. ABDOMEN: Positive distention, possible midline incisional reducible hernia. Mild tenderness to palpation. No peritoneal signs. Well-healed surgical incisions. EXTREMITIES: Warm and well perfused, no edema. SKIN: No rash or lesion. NEUROLOGIC: GCS of 15, 5/5 motor in all extremities. LABORATORY AND DIAGNOSTIC DATA: WBC 4.9, hemoglobin 12.4, hematocrit 36.1, platelets 129. Sodium 140, potassium 3.9, chloride 107, BUN 15, creatinine 0.6, glucose 154, calcium 7.9, lipase 161. INR 1.0. CT reviewed by myself showing abdomen and pelvis, large distended stomach, narrowing of pylorus, a concern for gastric bezoar or stenosis. Kiersten wrap appears intact. Small midline ventral hernia. No evidence of incarceration of bowel. Some omental fat noted. CT lumbar spine, anterior spondylolisthesis, L5-S1, DJD. ASSESSMENT: The patient is a 72-year-old female, history of multiple medical issues including reflux, status post redo Kiersten fundoplication, currently what appears to be pyloric stricturing, gastric outlet obstruction. The patient does have nasogastric tube in place. Abdominal pain, small ventral hernia. PLAN: After full clinical, radiological and laboratory workup, patient with the above named issues. In regard to the patient's ventral hernia, this is relatively small. I do not feel that all her symptoms are attributed to the hernia alone. It is clearly reducible, relatively small. There is a small bit of omental fat containing. No evidence of bowel there. She is planned to undergo repair by Dr. Crisostomo this month on the . Will discuss with Dr. Crisostomo for possible earlier intervention pending clinical course. Further, in regard to the patient's duodenal stricturing, I agree with NG tube to low intermittent suction. Await recommendations from gastroenterology. Dr. Haile is planning for possible endoscopic dilation tomorrow. We will await the results and findings of this. The patient would benefit from Protonix, n.p.o., IV fluids. Medical management for patient's multiple medical problems and allergies. We will continue to follow. Thank you for consultation. MD SANJAY Petersen/XIN , 03:02 PM , 03:56 PM
--- NOTE | 2017-11-15 10:52 | PD.PROCEDR ---
GI Procedure PROCEDURE PERFORMED Upper endoscopy, dilation of esophagus with savory guidewire dilator, biopsy INDICATION FOR PROCEDURE Dysphagia, possible gastric outlet obstruction, abnormal CT scan of the stomach PROCEDURE: The procedure, risks and benefits were discussed with Ms. Hernandez and informed consent was obtained. Anesthesia sedated her with Diprivan. She was placed in the left lateral decubitus position. EGD: The Pentax videoscope was introduced through the oropharynx and advanced to the second portion of the duodenum under direct visualization. Retroflexion was performed in the stomach. Biopsy from the EG junction was performed, dilation with size 18 mm savory guidewire over guideed FINDINGS: [] Flexible Sigmoidoscopy: The Pentax videoscope was introduced through the rectum and advanced to the sigmoid. Retroflexion was performed in the rectum. Colonic prep was [] FINDINGS: No gastric outlet obstruction, the pylorus was wide open and I was able to pass the scope without any difficulty Some food residual in the stomach Stomach was not distended Irregular Z line biopsy was done from the EG junction Questionable esophageal ring status post dilation with savory guidewire size 18 mm ESTIMATED BLOOD LOSS: None SPECIMENS REMOVED: GE junction COMPLICATIONS: None IMPRESSION: No gastric outlet obstruction, the pylorus was wide open and I was able to pass the scope without any difficulty Some food residual in the stomach Stomach was not distended Irregular Z line biopsy was done from the EG junction Questionable esophageal ring status post dilation with savory guidewire size 18 mm This could be related to gastroparesis PLAN: Advance diet as tolerated If symptom persist patient will need gastric emptying study Follow-up biopsy Chew food well Allison Cosby MD Nov 15, 2017 10:52
--- NOTE | 2017-11-15 10:54 | HHI.GIFU ---
Subjective Remarks Patient laying in bed, seems to be comfortable, anxious, NG tube in place, no sign of GI bleed Objective Vitals I&O Vital Signs Date Time Temp Pulse Resp B/P (MAP) Pulse Ox O2 Delivery O2 Flow Rate FiO2 11/15/17 10:15 75 16 159/74 (102) 94 Nasal Cannula 2 11/15/17 10:05 98.9 77 16 166/78 (107) 97 Nasal Cannula 3 11/15/17 08:04 Room Air 11/15/17 08:00 98.0 83 18 137/62 (87) 97 11/15/17 04:39 98.8 83 18 151/68 (95) 95 11/15/17 00:20 98.2 77 18 157/78 (104) 95 11/14/17 21:37 Room Air 11/14/17 20:46 18 11/14/17 19:40 99.4 74 18 137/73 (94) 97 11/14/17 16:00 98.5 80 18 141/64 (89) 94 11/14/17 12:00 99.1 86 18 151/74 (99) 98 I/O 11/14/17 11/14/17 11/14/17 11/15/17 11/15/17 11/15/17 07:00 15:00 23:00 07:00 15:00 23:00 Intake Total 0 ml 1000 ml Output Total 125 ml 100 ml 0 ml Balance -125 ml -100 ml 1000 ml Intake Oral 0 ml 0 ml IV Total 1000 ml Output Gastric Drainage Total 125 ml 100 ml 0 ml # Voids 1 3 3 # Bowel Movements 2 0 Laboratory Laboratory Tests Test 11/15/17 07:28 Blood Urea Nitrogen 7 Creatinine 0.55 Random Glucose 144 Calcium Level 8.4 Phosphorus Level 3.5 Magnesium Level 2.0 Sodium Level 137 Potassium Level 3.8 Chloride Level 104 Carbon Dioxide Level 24.6 Anion Gap 8 Estimat Glomerular Filtration Rate 109 Physical Exam HEENT: Pupils round and reactive to light; normocephalic; atraumatic; no jaundice. Throat is clear. NECK: Neck is supple, no JVD, no lymphadenopathy. CHEST: Chest is clear to auscultation and percussion. CARDIAC: Regular rate and rhythm with no murmur gallop or rubs. ABDOMEN: Soft, nondistended, nontender; no hepatosplenomegaly; bowel sounds are present in all four quadrants. EXTREMITIES: No clubbing, cyanosis, or edema. SKIN: Normal; no rash; no jaundice. DAM WORKER: No focal deficits; alert and oriented times three. Assessment and Plan Assessment: (1) Gastric outlet obstruction ICD Codes: K31.1 - Adult hypertrophic pyloric stenosis Status: Acute (2) Pyloric stenosis ICD Codes: K31.1 - Adult hypertrophic pyloric stenosis Plan History of hepatitis C patient was treated with hard bony back in 2016. Patient also has some abdominal bloating which could be due to gastroparesis. Patient has complaints of sciatica low back pain 1 week. Dysphasia off and on since July 2017. Currently had last choking spell with water yesterday a.m. he is able to eat solid foods without any choking or coughing. She does note some constipation for the past 4 months, this also could be secondary to her lack of appetite and some dysphagia. Patient has obvious bloating diffuse abdominal tenderness for known. Patient has history of hiatal hernia repair 2 last procedure done July [address] Crisostomo. Patient had diaphoretic episode without nausea and vomiting when getting out of the shower yesterday morning. 11/15/[address] scan showing possible gastric outlet obstruction patient also complaining of dysphagia. Patient also has constipation, Upper endoscopy was performed IMPRESSION: No gastric outlet obstruction, the pylorus was wide open and I was able to pass the scope without any difficulty Some food residual in the stomach Stomach was not distended Irregular Z line biopsy was done from the EG junction Questionable esophageal ring status post dilation with savory guidewire size 18 mm This could be related to gastroparesis PLAN: Advance diet as tolerated If symptom persist patient will need gastric emptying study Follow-up biopsy Chew food well PPI Anti-emetics Dulcolax suppository as needed for bowel regimen Reglan IV Monitor labs with special attention to hemoglobin NG tube can be DC'Allison Edwards MD Nov 15, 2017 10:54
[2017-11-15 11:49] VITALS: BP 164/77; PULSE 81; RESP 16; TEMP 98.1; O2SAT 97
[2017-11-15] MEDS ORDERED: SUCCINYLCHOLINE CHLORIDE 100 MG/5 ML SYRINGE IV PUSH ONE (12:00)
[2017-11-15] MEDS ORDERED: LIDOCAINE HCL 1% PF 5 ML SYRINGE OTHER ONE (12:00)
[2017-11-15] MEDS ORDERED: PROPOFOL 200 MG/20 ML AMP IV ONE (12:00)
--- NOTE | 2017-11-15 13:18 | HHI.PR ---
Subjective Remarks Pt seen and examined. VS reviewed, BPs running high. Otherwise VSS. Patient states she is feeling much better. Seen after EGD earlier today. Not currently in any pain. Denies N/V, diarrhea, CP, or SOB. Tolerating clears with no issues. States she hadn't been taking her psychiatric meds (Celexa and Klonopin ) for several days which she states may have been contributing to her pain. Regardless she states she is feeling nearly back to herself. Objective Vital Signs Date Time Temp Pulse Resp B/P (MAP) Pulse Ox O2 Delivery O2 Flow Rate FiO2 11/15/17 11:49 98.1 81 16 164/77 (106) 97 11/15/17 10:50 95 Room Air 11/15/17 10:45 98.5 75 16 150/72 (98) 94 Room Air 11/15/17 10:30 74 16 154/70 (98) 97 Nasal Cannula 2 11/15/17 10:15 75 16 159/74 (102) 94 Nasal Cannula 2 11/15/17 10:05 98.9 77 16 166/78 (107) 97 Nasal Cannula 3 11/15/17 08:04 Room Air 11/15/17 08:00 98.0 83 18 137/62 (87) 97 11/15/17 04:39 98.8 83 18 151/68 (95) 95 11/15/17 00:20 98.2 77 18 157/78 (104) 95 11/14/17 21:37 Room Air 11/14/17 20:46 18 11/14/17 19:40 99.4 74 18 137/73 (94) 97 11/14/17 16:00 98.5 80 18 141/64 (89) 94 I/O 11/14/17 11/14/17 11/14/17 11/15/17 11/15/17 11/15/17 07:00 15:00 23:00 07:00 15:00 23:00 Intake Total 0 ml 1000 ml 100 ml Output Total 125 ml 100 ml 0 ml Balance -125 ml -100 ml 1000 ml 100 ml Intake Oral 0 ml 0 ml IV Total 1000 ml Other 100 ml Output Gastric Drainage Total 125 ml 100 ml 0 ml # Voids 1 3 3 0 # Bowel Movements 2 0 Result Diagram: 11/14/1762211/15/17 0728 Procedures NG tube at slow suction. Objective Remarks GENERAL: WN, WD female resting comfortably in bed in NAD. SKIN: Warm and dry. HEENT: AT/NC. Pupils equal and round. MMM. NECK: Supple no tender LAD or JVD. HEART: RRR no m/r/g. LUNGS: CTAB without wheezes or crackles. ABDOMEN: +BS, soft, NT, ND. Small midline ventral hernia superior to umbilicus. EXTREMITIES: No LE edema. 2+ pedal pulses. NEURO: Awake and alert. Nonfocal. PSYCH: Appropriate mood and affect. A/P Problem List: (1) Gastric outlet obstruction ICD Code: K31.1 - Adult hypertrophic pyloric stenosis Status: Acute (2) Intractable abdominal pain ICD Code: R10.9 - Unspecified abdominal pain Status: Acute (3) Ventral hernia ICD Code: K43.9 - Ventral hernia without obstruction or gangrene (4) Pyloric stenosis ICD Code: K31.1 - Adult hypertrophic pyloric stenosis Assessment and Plan 72 YOWF with ventral hernia, anxiety, depression, bipolar disorder, HCV, and fibromyalgia presenting with abdominal pain. 1. Abdominal pain - CT demonstrated distended stomach with appearance of pyloric stenosis and small ventral hernia - GI consulted, underwent EGD today showing no gastric outlet obstruction and a wide open pylorus; stomach was not distended and residual food was seen; biopsy done of irregular Z-line - Tolerated clears. Advance diet as tolerated - If symptoms persist consider gastric emptying study but she likely has gastroparesis - Reglan IV - Antiemetics - NGT discontinued - Morphine PRN pain 2. Ventral hernia - Reducible and small - General surgery following, do not believe the cause of her acute pain - Planned for surgery as outpatient on 11/25 3. Anxiety - Resume home Celexa and Klonopin 4. HCV - LFTs normal - S/P treatment with [facility] in 2015 DVT prophylaxis: Lovenox Discharge Planning Anticipate D/C tomorrow if she remains clinically well Clau Gabriel MD Nov 15, 2017 13:18
[2017-11-15] MEDS: clonazePAM 0.5 MG TAB PO SCH ×2 (13:38→21:19)
[2017-11-15] MEDS: CITALOPRAM HYDROBROMIDE 20 MG TAB PO SCH (13:38)
[2017-11-15 14:19] LABS: BILIRUBIN, URINE NEG (NEG); BLOOD, URINE NEG (NEG); GLUCOSE,URINE NEG (NEG); KETONE, URINE NEG (NEG); NITRITE,URINE NEG (NEG); PH, URINE 6.5 (5.0-8.5); URINE COLOR COLORLESS (YELLW/STRAW); URINE LEUKOCYTE ESTERASE NEG (NEG)
[2017-11-15 16:14] VITALS: BP 121/56; PULSE 80; RESP 16; TEMP 98.2; O2SAT 94
--- NOTE | 2017-11-15 17:07 | HHI.PR ---
cc: Servando Hand MD Subjective Subjective Notes Resting in bed in no acute distress Objective Vitals/I&O Vital Signs Date Time Temp Pulse Resp B/P (MAP) Pulse Ox O2 Delivery O2 Flow Rate FiO2 11/15/17 16:14 98.2 80 16 121/56 (77) 94 11/15/17 10:50 Room Air 11/15/17 10:30 2 Labs Laboratory Tests Test 11/15/17 07:28 11/15/17 13:50 Blood Urea Nitrogen 7 Creatinine 0.55 Random Glucose 144 Calcium Level 8.4 Phosphorus Level 3.5 Magnesium Level 2.0 Sodium Level 137 Potassium Level 3.8 Chloride Level 104 Carbon Dioxide Level 24.6 Anion Gap 8 Estimat Glomerular Filtration Rate 109 Urine Color COLORLESS Urine Turbidity CLEAR Urine pH 6.5 Urine Specific Reasnor 1.005 Urine Protein NEG Urine Glucose (UA) NEG Urine Ketones NEG Urine Occult Blood NEG Urine Nitrite NEG Urine Bilirubin NEG Urine Urobilinogen LESS THAN 2.0 Urine Leukocyte Esterase NEG Urine RBC 1 Urine WBC LESS THAN 1 Microscopic Urinalysis Comment CULT NOT INDICATED Cardiovascular: Regular Lungs: Clear Abdomen: Non-distended, Non-tender, Other (ventral hernia reducible ) Extremities: No edema A/P Assessment and Plan 72 year old female with nausea/vomiting; distended stomach; ? gastric outlet obstructive -s/p EGD--- scope was easily passed through; ? gastroparesis -Diet as tolerated -OOB as tolerated Kristin Doss/[employer] Field Assistant RAMESH Nov 15, 2017 17:07
[2017-11-15 20:00] VITALS: BP 143/63; PULSE 76; RESP 19; TEMP 98.5; O2SAT 95
[2017-11-16] VITALS: BP 124/63; PULSE 69; RESP 17; TEMP 98.5; O2SAT 94
[2017-11-16] MEDS: SODIUM CHLOR 0.9% 1000 ML INJ 1,000 ML IV SCH (02:14)
[2017-11-16 04:00] VITALS: BP 164/68; PULSE 72; RESP 18; TEMP 98.1; O2SAT 96
[2017-11-16] MEDS: METOCLOPRAMIDE HCL 10 MG/2 ML VIAL IV PUSH SCH (05:53)
[2017-11-16 08:00] VITALS: BP 144/67; PULSE 73; RESP 16; TEMP 98.5; O2SAT 93
[2017-11-16] MEDS: SODIUM CHLORIDE 0.9% FLUSH 10 ML FLUSH IV FLUSH SCH (09:00)
[2017-11-16] MEDS: BISACODYL 10 MG SUPP RECTAL SCH (09:22)
[2017-11-16] MEDS: clonazePAM 0.5 MG TAB PO SCH (09:22)
[2017-11-16] MEDS: DOCUSATE SODIUM 50 MG/SENNA 8.6 MG TAB PO SCH (09:22)
[2017-11-16] MEDS: CITALOPRAM HYDROBROMIDE 20 MG TAB PO SCH (09:22)
[2017-11-16] MEDS ORDERED: ENOXAPARIN SODIUM 40 MG/0.4 ML SYRINGE SQ SCH (10:00)
--- NOTE | 2017-11-16 10:25 | HHI.PR ---
Subjective Remarks Follow-up for gastric outlet obstruction Patient had breakfast, no nausea or vomiting. Denies abdominal pain. Tolerating diet. NG tube was out since yesterday. Objective Vitals Vital Signs Date Time Temp Pulse Resp B/P (MAP) Pulse Ox O2 Delivery O2 Flow Rate FiO2 11/16/17 09:40 Room Air 11/16/17 08:00 98.5 73 16 144/67 (92) 93 11/16/17 04:00 98.1 72 18 164/68 (100) 96 11/16/17 03:53 21 11/16/17 00:00 98.5 69 17 124/63 (83) 94 11/15/17 23:02 Room Air 11/15/17 20:00 98.5 76 19 143/63 (89) 95 11/15/17 16:14 98.2 80 16 121/56 (77) 94 11/15/17 11:49 98.1 81 16 164/77 (106) 97 11/15/17 10:50 95 Room Air 11/15/17 10:45 98.5 75 16 150/72 (98) 94 Room Air 11/15/17 10:30 74 16 154/70 (98) 97 Nasal Cannula 2 I/O 11/15/17 11/15/17 11/15/17 11/16/17 11/16/17 11/16/17 07:00 15:00 23:00 07:00 15:00 23:00 Intake Total 1000 ml 580 ml 3902 ml 1480 ml Output Total 0 ml Balance 1000 ml 580 ml 3902 ml 1480 ml Intake Oral 0 ml 480 ml 480 ml IV Total 1000 ml 3902 ml 1000 ml Other 100 ml Output Gastric Drainage Total 0 ml # Voids 3 3 3 # Bowel Movements 0 0 Result Diagram: 11/14/17 0623 11/15/17 0728 Objective Remarks GENERAL: WN, WD female resting comfortably in bed in NAD. HEART: RRR no m/r/g. LUNGS: CTAB without wheezes or crackles. ABDOMEN: +BS, soft, NT, ND. Small midline ventral hernia superior to umbilicus. EXTREMITIES: No LE edema. 2+ pedal pulses. NEURO: Awake and alert. Nonfocal. PSYCH: Appropriate mood and affect. A/P Problem List: (1) Gastric outlet obstruction ICD Code: K31.1 - Adult hypertrophic pyloric stenosis Status: Acute (2) Pyloric stenosis ICD Code: K31.1 - Adult hypertrophic pyloric stenosis (3) Ventral hernia ICD Code: K43.9 - Ventral hernia without obstruction or gangrene (4) Intractable abdominal pain ICD Code: R10.9 - Unspecified abdominal pain Status: Acute Assessment and Plan 72 YOWF with ventral hernia, anxiety, depression, bipolar disorder, HCV, and fibromyalgia presenting with abdominal pain. 1. Abdominal pain - CT demonstrated distended stomach with appearance of pyloric stenosis and small ventral hernia - GI consulted, underwent EGD today showing no gastric outlet obstruction and a wide open pylorus; stomach was not distended and residual food was seen; biopsy done of irregular Z-line. Patient also had esophageal ring status post dilatation. Follow-up biopsy results, continue Reglan as needed. 2. Ventral hernia - Reducible and small - General surgery following, do not believe the cause of her acute pain - Planned for surgery as outpatient on 11/25 3. Anxiety - Resume home Celexa and Klonopin 4. HCV - LFTs normal - S/P treatment with [facility] in 2016 DVT prophylaxis: Wilber Wiggins MD Nov 16, 2017 10:25
[2017-11-16] MEDS ORDERED: PROT40TA PO (10:49)
[2017-11-16] MEDS ORDERED: REGL10TA5 PO (10:50)
--- NOTE | 2017-11-16 11:17 | HHI.DS ---
Discharge Summary Admission Date Nov 13, 2017 at 22:15 Discharge Date: Nov 16, 2017 Admitting Diagnosis Gastric outlet obstruction, intractable abdominal pain, sciatica (1) Gastric outlet obstruction ICD Code: K31.1 - Adult hypertrophic pyloric stenosis Status: Acute (2) Pyloric stenosis ICD Code: K31.1 - Adult hypertrophic pyloric stenosis (3) Ventral hernia ICD Code: K43.9 - Ventral hernia without obstruction or gangrene (4) Intractable abdominal pain ICD Code: R10.9 - Unspecified abdominal pain Status: Acute Procedures Status post EGD Brief History - From Admission This is a 72-year-old female with a PMH of Anxiety, Depression, Bipolar Disorder , Rheumatoid Arthritis, Fibromyalgia, Hepatitis C and GERD who presented to the ER with complaints of abdominal pain which she believes is due to ventral hernia. Has been following with Dr. Crisostomo for her hernia w/ plans for surgical intervention on November 25, however reports severe abdominal pain and worsening chronic back pain x4 days. Was prescribed Joseph w/ no relief. Pain is constant, sharp, severe 10/10, worse w/ movement, associated w/ nausea no vomiting. On arrival, BP 142/67, HR 70, O2 sat 97% on RA, Afebrile. CBC unremarkable. Chemistry essentially unremarkable except for BUN 21. Lactic Acid 2.3. LFTs normal. INR 1.0. CT L-spine grade 1 anterior spondylolisthesis of L5 on S1, status post stabilization procedure, no acute findings. CT Abdomen/Pelvis stomach quite distended with considerable material in the stomach, pylorus appears narrowed suggesting gastric reservoir and pyloric stenosis, malignancy not excluded, small ventral hernia with omental fat herniated through the defect, 3 mm nonobstructing stone left kidney. S/p NGT placement in ER w/ some improvement. CBC/BMP: 11/14/17 0623 11/15/17 0728 Significant Findings Laboratory Tests Test 11/13/17 19:40 11/14/17 00:51 11/14/17 06:23 11/15/17 07:28 Platelet Count 149 TH/MM3 (150-450) 129 TH/MM3 (150-450) Activated Partial Thromboplast Time 23.6 SEC (24.3-30.1) Blood Urea Nitrogen 21 MG/DL (7-18) Random Glucose 143 MG/DL (74-106) 154 MG/DL (74-106) 144 MG/DL (74-106) Estimat Glomerular Filtration Rate 65 ML/MIN (>89) Lactic Acid Level 2.3 mmol/L (0.4-2.0) Hematocrit 33.7 % (35.0-46.0) Calcium Level 7.9 MG/DL (8.5-10.1) 8.4 MG/DL (8.5-10.1) Test 11/15/17 13:50 Imaging Last Impressions Chest X-Ray 11/14/17 0000 Signed Impressions: Service Date/Time: Tuesday, November 14, 2017 07:38 - CONCLUSION: Nasogastric tube with proximal port the level of the gastroesophageal junction. No evidence of acute cardiopulmonary disease. Lyssa Tate MD Lumbar Spine CT 11/13/17 0000 Signed Impressions: Service Date/Time: Monday, November 13, 2017 19:52 - CONCLUSION: 1. Grade 1 anterior spondylolisthesis of L5 on S1. The patient is status post stabilization procedure. 2. Degenerative changes throughout as described above. 3. Left renal stone. Dillon Mairano MD Abdomen/Pelvis CT 11/13/17 0000 Signed Impressions: Service Date/Time: Monday, November 13, 2017 19:52 - CONCLUSION: 1. The stomach is quite distended with considerable material in the stomach. The pylorus appears narrowed suggesting a gastric bezoar and pyloric stenosis. Endoscopy would be warranted for further assessment. Malignancy is not excluded. 2. Small ventral hernia with some omental fat herniated through the defect. 3. 3 mm nonobstructing stone in the left kidney.. Jamal Hinds MD Abdomen X-Ray 11/13/17 0000 Signed Impressions: Service Date/Time: Monday, November 13, 2017 21:44 - CONCLUSION: NG tube in the distal esophagus. Dillon Mariano MD PE at Discharge GENERAL: WN, WD female resting comfortably in bed in NAD. HEART: RRR no m/r/g. LUNGS: CTAB without wheezes or crackles. ABDOMEN: +BS, soft, NT, ND. Small midline ventral hernia superior to umbilicus. EXTREMITIES: No LE edema. 2+ pedal pulses. NEURO: Awake and alert. Nonfocal. PSYCH: Appropriate mood and affect. Hospital Course 72 YOWF with ventral hernia, anxiety, depression, bipolar disorder, HCV, and fibromyalgia presenting with abdominal pain. Patient was thought to have gastric outlet obstruction. GI and surgery were consulted, NG tube was placed. CT scan of the abdomen showed a distended stomach with appearance of pyloric stenosis and small ventral hernia. Patient went she will continue on Protonix and started on Reglan as needed. She will get her outpatient surgery on November 25 for surgery. Patient was discharged on Reglan and Protonix when tolerating diet, after NG tube was discontinued. Pt Condition on Discharge: Good Discharge Disposition: Discharge Home Discharge Time: > 30 minutes Discharge Instructions DIET: Follow Instructions for: Heart Healthy Diet Activities you can perform: Regular-No Restrictions Follow up Referrals: Gastroenterology - 3 Weeks PCP Follow-up - 1 Week New Medications: Metoclopramide (Reglan) 10 Mg Tab 10 MG PO TIDAC PRN for nausea/vomitting, #20 TAB 0 Refills Pantoprazole (Protonix) 40 Mg Tab 40 MG PO DAILY for Reflux, #30 TAB 0 Refills Continued Medications: Citalopram (Citalopram) 40 Mg Tab 30 MG PO DAILY for Control Depression, #30 TAB 0 Refills Clonazepam (Klonopin) 0.5 Mg Tab 0.5 MG PO BID, #60 TAB 0 Refills Wilber De Leon MD Nov 16, 2017 11:17
[2017-11-16 12:00] VITALS: BP 127/60; PULSE 72; RESP 17; TEMP 98.1; O2SAT 95
--- NOTE | 2017-11-16 12:45 | HHI.PR ---
cc: Servando Hand MD Subjective Subjective Notes Resting in bed Tolerated dinner last night and breakfast today Objective Vitals/I&O Vital Signs Date Time Temp Pulse Resp B/P (MAP) Pulse Ox O2 Delivery O2 Flow Rate FiO2 11/16/17 09:40 Room Air 11/16/17 08:00 98.5 73 16 144/67 (92) 93 11/16/17 03:53 21 11/15/17 10:30 2 Labs Laboratory Tests Test 11/15/17 13:50 Urine Color COLORLESS Urine Turbidity CLEAR Urine pH 6.5 Urine Specific [place] 1.005 Urine Protein NEG Urine Glucose (UA) NEG Urine Ketones NEG Urine Occult Blood NEG Urine Nitrite NEG Urine Bilirubin NEG Urine Urobilinogen LESS THAN 2.0 Urine Leukocyte Esterase NEG Urine RBC 1 Urine WBC LESS THAN 1 Microscopic Urinalysis Comment CULT NOT INDICATED Cardiovascular: Regular Lungs: Clear Abdomen: Non-distended, Non-tender, Other (reducible hernia ) Extremities: No edema A/P Assessment and Plan 72 year old female with nausea/vomiting; distended stomach; ? gastric outlet obstructive -s/p EGD--- scope was easily passed through; ? gastroparesis -Patient could likely benefit from outpatient gastric emptying study -Diet as tolerated -OOB as tolerated -GS clear for Kristin Harmon/[employer] RAMESH Nov 16, 2017 12:45
--- NOTE | 2017-11-16 13:04 | HHI.GIFU ---
Subjective Remarks Pt sitting up in bed, about to eat lunch. She is feeling better. No n/v, no abd pain. (Graciela Marroquin) Objective Vitals I&O Vital Signs Date Time Temp Pulse Resp B/P (MAP) Pulse Ox O2 Delivery O2 Flow Rate FiO2 11/16/17 09:40 Room Air 11/16/17 08:00 98.5 73 16 144/67 (92) 93 11/16/17 04:00 98.1 72 18 164/68 (100) 96 11/16/17 03:53 21 11/16/17 00:00 98.5 69 17 124/63 (83) 94 11/15/17 23:02 Room Air 11/15/17 20:00 98.5 76 19 143/63 (89) 95 11/15/17 16:14 98.2 80 16 121/56 (77) 94 I/O 11/15/17 11/15/17 11/15/17 11/16/17 11/16/17 11/16/17 07:00 15:00 23:00 07:00 15:00 23:00 Intake Total 1000 ml 580 ml 3902 ml 1480 ml Output Total 0 ml Balance 1000 ml 580 ml 3902 ml 1480 ml Intake Oral 0 ml 480 ml 480 ml IV Total 1000 ml 3902 ml 1000 ml Other 100 ml Output Gastric Drainage Total 0 ml # Voids 3 3 3 # Bowel Movements 0 0 2 Laboratory Laboratory Tests Test 11/15/17 13:50 Urine Color COLORLESS Urine Turbidity CLEAR Urine pH 6.5 Urine Specific [place] 1.005 Urine Protein NEG Urine Glucose (UA) NEG Urine Ketones NEG Urine Occult Blood NEG Urine Nitrite NEG Urine Bilirubin NEG Urine Urobilinogen LESS THAN 2.0 Urine Leukocyte Esterase NEG Urine RBC 1 Urine WBC LESS THAN 1 Microscopic Urinalysis Comment CULT NOT INDICATED Imaging Last Impressions Chest X-Ray 11/14/17 0000 Signed Impressions: Service Date/Time: Tuesday, November 14, 2017 07:38 - CONCLUSION: Nasogastric tube with proximal port the level of the gastroesophageal junction. No evidence of acute cardiopulmonary disease. Lyssa Tate MD Lumbar Spine CT 11/13/17 0000 Signed Impressions: Service Date/Time: Monday, November 13, 2017 19:52 - CONCLUSION: 1. Grade 1 anterior spondylolisthesis of L5 on S1. The patient is status post stabilization procedure. 2. Degenerative changes throughout as described above. 3. Left renal stone. Dillon Mariano MD Abdomen/Pelvis CT 11/13/17 0000 Signed Impressions: Service Date/Time: Monday, November 13, 2017 19:52 - CONCLUSION: 1. The stomach is quite distended with considerable material in the stomach. The pylorus appears narrowed suggesting a gastric bezoar and pyloric stenosis. Endoscopy would be warranted for further assessment. Malignancy is not excluded. 2. Small ventral hernia with some omental fat herniated through the defect. 3. 3 mm nonobstructing stone in the left kidney.. Jamal Hinds MD Abdomen X-Ray 11/13/17 Signed Impressions: Service Date/Time: Monday, November 13, 2017 21:44 - CONCLUSION: NG tube in the distal esophagus. Dillon Mariano MD Physical Exam HEENT: PERRL; normocephalic; atraumatic; no jaundice. CHEST: CTA CARDIAC: RRR ABDOMEN: Soft, protuberant, abd hernia, nontender; no hepatosplenomegaly; bowel sounds are present in all four quadrants. EXTREMITIES: No clubbing, cyanosis, or edema. SKIN: Normal; no rash; no jaundice. CUSTOMER RELATIONS REPRESENTATIVE: No focal deficits; alert and oriented times three. (Graciela Marroquin [facility]) Assessment and Plan Assessment: (1) Gastric outlet obstruction ICD Codes: K31.1 - Adult hypertrophic pyloric stenosis Status: Acute (2) Pyloric stenosis ICD Codes: K31.1 - Adult hypertrophic pyloric stenosis Plan History of hepatitis C patient was treated with [facility] back in 2016. Patient also has some abdominal bloating which could be due to gastroparesis. Patient has complaints of sciatica low back pain 1 week. Dysphasia off and on since July 2017. Currently had last choking spell with water yesterday a.m. he is able to eat solid foods without any choking or coughing. She does note some constipation for the past 4 months, this also could be secondary to her lack of appetite and some dysphagia. Patient has obvious bloating diffuse abdominal tenderness for known. Patient has history of hiatal hernia repair 2 last procedure done July [address] Crisostomo. Patient had diaphoretic episode without nausea and vomiting when getting out of the shower yesterday morning. 11/15/[address] scan showing possible gastric outlet obstruction patient also complaining of dysphagia. Patient also has constipation, Upper endoscopy was performed IMPRESSION: No gastric outlet obstruction, the pylorus was wide open and I was able to pass the scope without any difficulty Some food residual in the stomach Stomach was not distended Irregular Z line biopsy was done from the EG junction Questionable esophageal ring status post dilation with savory guidewire size 18 mm This could be related to gastroparesis 11/16/17 pt doing better, tolerating diet. PLAN: AYSHA If symptom persist patient will need gastric emptying study Follow-up biopsy Chew food well PPI Anti-emetics Dulcolax suppository as needed for bowel regimen ok to d/c from GI standpoint F/u with Dr Haile after d/c pt seen by myself and Dr Cosby and this note is on his behalf (Graciela Marroquin) Plan Agree with above note, chart reviewed, patient is doing well, okay to discharge home at this time and will follow up as an outpatient in few weeks (Allison Cosby MD) Graciela Marroquin Nov 16, 2017 13:04 Allison Cosby MD Nov 16, 2017 15:21
== END 2017-11-16 13:47 | disposition home or self-care (01) | DRG 392 ==
LOC: NEPE 19:20 → NEDH 21:14 → OBSVTOIN 22:15 → N06B 23:53
PROVIDERS: ADMIT Hospitalist; ATTEND Hospitalist
PROC: 0DB48ZX Excision of Esophagogastric Junction, Via Natural or Artificial Opening Endoscopic, Diagnostic (ICD-10-PCS; 2017-11-15)
PROC: 0DJD8ZZ Inspection of Lower Intestinal Tract, Via Natural or Artificial Opening Endoscopic (ICD-10-PCS; 2017-11-15)
PROC: 0D758ZZ Dilation of Esophagus, Via Natural or Artificial Opening Endoscopic (ICD-10-PCS; principal; 2017-11-15 09:36)
DX: K31.84 Gastroparesis (principal); T18.2XXA Foreign body in stomach, initial encounter; M06.9 Rheumatoid arthritis, unspecified; F31.9 Bipolar disorder, unspecified; K21.9 Gastro-esophageal reflux disease without esophagitis; K43.9 Ventral hernia without obstruction or gangrene; R10.9 Unspecified abdominal pain; M79.7 Fibromyalgia; G89.29 Other chronic pain; M54.89 Other dorsalgia; F12.90 Cannabis use, unspecified, uncomplicated; F41.9 Anxiety disorder, unspecified; Z86.19 Personal history of other infectious and parasitic diseases; Z98.1 Arthrodesis status; Z96.643 Presence of artificial hip joint, bilateral
CPT/HCPCS: 71045; 72131; 74018; 74176; 80048; 80053; 81001; 83605; 83690; 83735; 84100; 85014; 85018; 85025; 85610; 85730; 88305; 93005; 96361; 96374; C1769; J0330; J1650; J2060; J2270; J2405; J2765; J7030